=== PATIENT | male | born 1980 | race Caucasian/White ===

== ENCOUNTER → 2019-04-26 15:35 | Outpatient (BNVA) | payer BC, SELFPAY | PROVIDERS: Family Provider Nurse Practitioner; PCP Nurse Practitioner; Visit Provider Nurse Practitioner | DX: K50.90 Crohn's disease, unspecified, without complications (principal) | CPT/HCPCS: 80076; 82150; 85025 ==

== ENCOUNTER → 2019-05-22 16:01 | Outpatient (BNVA) | payer BC, SELFPAY | PROVIDERS: Family Provider Nurse Practitioner; PCP Nurse Practitioner; Visit Provider Nurse Practitioner | DX: K50.90 Crohn's disease, unspecified, without complications (principal) | CPT/HCPCS: 85025 ==

== ENCOUNTER → 2019-05-30 12:07 | Outpatient (BNVA) | payer BC, SELFPAY | PROVIDERS: Family Provider Nurse Practitioner; PCP Nurse Practitioner; Visit Provider Internal Medicine Rheumatology | DX: M45.0 Ankylosing spondylitis of multiple sites in spine (principal); M06.08 Rheumatoid arthritis without rheumatoid factor, vertebrae; K50.90 Crohn's disease, unspecified, without complications; M19.90 Unspecified osteoarthritis, unspecified site; Z79.899 Other long term (current) drug therapy | CPT/HCPCS: 99215; G0463 ==

== ENCOUNTER → 2019-06-14 14:22 | Outpatient (BNVA) | payer BC, SELFPAY | PROVIDERS: Family Provider Nurse Practitioner; PCP Nurse Practitioner; Visit Provider Urology | DX: N52.9 Male erectile dysfunction, unspecified (principal); N52.1 Erectile dysfunction due to diseases classified elsewhere | CPT/HCPCS: 81001 ==

== ENCOUNTER 2019-06-19 11:12 | Outpatient (CLI) | payer BC, SELFPAY ==
--- NOTE | 2019-06-19 11:26 | CT_ITS ---
WS: [id number] CT HEAD TECHNIQUE: Noncontrast CT of the head obtained from the skullbase to the vertex. CLINICAL INFORMATION: HEADACHE, CHRONIC COMPARISON: None. DLP: 992.[address] scans at [facility] use at least one of these dose optimization techniques: automat ed exposure control; mA and/or kV adjustment per patient size (includes targeted exams where dose is matched to clinical indication); or iterative reconstruction. FINDINGS: No evidence of intracranial hemorrhage or mass effect. Ventricular system and basal cisterns are owens nt. Mild small vessel changes with mild parenchymal volume loss. No extra-axial fluid collections. No evidence of mass or mass effect. Normal townsend-white differentiation. Paranasal sinuses and mastoid air cells are well aerated. .Normal visualized soft tissues. CT/CT head wo con* [id number] IMPRESSION: 1. No evidence of intracranial hemorrhage or mass effect. 2. Mild small vessel changes with mild parenchymal volume loss. 3. No acute intracranial findings.
== END 2019-06-19 11:13 | disposition home or self-care (01) ==
LOC: RADWPI 11:19
PROVIDERS: Family Provider Nurse Practitioner; PCP Nurse Practitioner; Visit Provider Nurse Practitioner Family
DX: R51 Headache (principal)
CPT/HCPCS: 70450

== ENCOUNTER → 2019-06-20 10:36 | Outpatient (BNVA) | payer BC, SELFPAY | PROVIDERS: Family Provider Nurse Practitioner; PCP Nurse Practitioner; Visit Provider Nurse Practitioner | DX: F10.20 Alcohol dependence, uncomplicated (principal); F33.1 Major depressive disorder, recurrent, moderate; F17.210 Nicotine dependence, cigarettes, uncomplicated | CPT/HCPCS: 99213 ==

== ENCOUNTER 2019-08-15 09:30 | Outpatient (CLI) | payer MEDICARE, BC, SELFPAY ==
--- NOTE | 2019-08-15 09:53 | US_ITS ---
WS: [id number] RENAL ULTRASOUND REASON FOR EXAM: ELEVATED SERUM CREATININE, BURNING ON URINATION TECHNIQUE: Grayscale and Doppler ultrasound examination of the kidneys. FINDINGS: Right kidney: Right kidney measures 10.7 cm x 5.9 cm x 6.3 cm. Techs measured 1.82 cm. Left kidney: Left kidney measures 11.1 cm x 4.9 cm x 6.0 cm. Cortex measured 1.25 cm The right kidneys shows a deformity along the upper pole extends over the cortex and may represent a junctional defect consideration of follow-up with CT recommended. The remaining right and left kidney s were normal with normal architecture seen. US/US renal BI* [id number] IMPRESSION: A defect is seen along the upper right pole of the kidney a mass to be excluded . Follow-up with CT recommended for consider MRI.
== END 2019-08-15 09:31 | disposition home or self-care (01) ==
LOC: RAD 09:52
PROVIDERS: Family Provider Nurse Practitioner; PCP Nurse Practitioner; Visit Provider Nurse Practitioner Family
DX: R30.9 Painful micturition, unspecified; R74.8 Abnormal levels of other serum enzymes
CPT/HCPCS: 76770

== ENCOUNTER 2019-08-21 09:50 | Outpatient (CLI) | payer MEDICARE, OTHER, SELFPAY ==
--- NOTE | 2019-08-21 09:55 | CT_ITS ---
WS: [id number] CT ABDOMEN PELVIS TECHNIQUE: Noncontrast CT of the abdomen and pelvis with coronal and sagittal reformatted images. CLINICAL INFORMATION: RENAL MASS, ELEVATED SERUM CREATININE COMPARISON: Ultrasound August 15, 2019 DLP: 1008.[address] scans at [facility] use at least one of these dose optimization techniques: automat ed exposure control; mA and/or kV adjustment per patient size (includes targeted exams where dose is matched to clinical indication); or iterative reconstruction. FINDINGS: Noncontrast liver is normal in appearance. Normal GE junction. Normal noncontrast spleen. Adrenal gla nds are normal. Bilateral renal cortical atrophy. No hydronephrosis. Both ureters are decompressed wh ere visualized. No evidence of a right renal mass to correspond to the ultrasound findings. Small cor tical lesions left kidney too small to characterize but likely renal cysts. Lung bases are well aerated. Normal GE junction. Fatty atrophy of the pancreas. Normal caliber abdomi nal aorta. Distal ureters not well evaluated and pelvis not well evaluated due to beam hardening atif fact from bilateral THAs. Ankylosis with anterior bridging syndesmophytes lumbar spine. Ankylosis of the sacroiliac joints bilaterally. Recommend correlation with history of ankylosing spondylitis. CT/CT kidney stone [id number] IMPRESSION: 1. Bilateral renal cortical atrophy. No evidence of right renal mass to corres pond to the ultrasound findings. 2. Tiny cortical lesions left kidney too small to characterize but likely repr esent small renal cysts. 3. Bilateral THAs degrade images in the pelvis. 4. Ankylosis lumbar spine and sacroiliac joints. Recommend correlation with hi story of ankylosing spondylitis. 5. Normal caliber abdominal aorta. 6. No other significant findings.
== END 2019-08-21 09:51 | disposition home or self-care (01) ==
LOC: RADWPI 09:54
PROVIDERS: Family Provider Nurse Practitioner; PCP Nurse Practitioner Family; Visit Provider Nurse Practitioner Family
DX: R74.8 Abnormal levels of other serum enzymes (principal); N28.9 Disorder of kidney and ureter, unspecified; N26.1 Atrophy of kidney (terminal); M43.26 Fusion of spine, lumbar region
CPT/HCPCS: 74176

== ENCOUNTER → 2019-08-23 13:07 | Outpatient (BNVA) | payer MEDICARE, BC, SELFPAY | PROVIDERS: Family Provider Nurse Practitioner; PCP Nurse Practitioner; Referring Provider Nurse Practitioner Family; Visit Provider Specialist | DX: G43.019 Migraine without aura, intractable, without status migrainosus (principal); F32.9 Major depressive disorder, single episode, unspecified | CPT/HCPCS: 99204 ==

== ENCOUNTER 2019-08-29 16:03 | Outpatient (CLI) | payer MEDICARE, BC, SELFPAY ==
--- NOTE | 2019-08-29 16:14 | XR_ITS ---
WS: [id number] ABDOMEN 1 VIEW(S) HISTORY: UNSPECIFIED ABDOMINAL PAIN COMPARISON: None available. Mild constipation. No obstructive pattern is evident on this supine radiograph. No calcifications. No suspicious calcifications or masses. Bamboo-like spine with ankylosis throughout the lumbar spine and SI joints from ankylosing spondyliti s. Bilateral hip replacements. XR/XR KUB [id number] IMPRESSION: 1. Mild constipation. 2. Ankylosing spondylitis.
== END 2019-08-29 16:04 | disposition home or self-care (01) ==
LOC: RADWPI 16:08
PROVIDERS: Family Provider Nurse Practitioner Family; PCP Nurse Practitioner Family; Visit Provider Nurse Practitioner Family
DX: R10.9 Unspecified abdominal pain (principal); K59.00 Constipation, unspecified; M45.9 Ankylosing spondylitis of unspecified sites in spine
CPT/HCPCS: 74018

== ENCOUNTER → 2019-08-30 14:02 | Outpatient (BNVA) | payer MEDICARE, BC, SELFPAY | PROVIDERS: Family Provider Nurse Practitioner Family; PCP Nurse Practitioner Family; Visit Provider Internal Medicine Rheumatology | DX: M45.0 Ankylosing spondylitis of multiple sites in spine (principal); Z79.899 Other long term (current) drug therapy; K50.90 Crohn's disease, unspecified, without complications; M08.90 Juvenile arthritis, unspecified, unspecified site | CPT/HCPCS: G0463 ==

== ENCOUNTER 2019-09-18 13:03 | Outpatient (CLI) | payer MEDICARE, BC, SELFPAY ==
[2019-09-18 13:14] VITALS: BP 140/86; PULSE 76; RESP 6; TEMP 36.8; O2SAT 97
[2019-09-18] MEDS: acetaminophen 325 mg Tablet 975 MG PO (13:39)
[2019-09-18] MEDS: diphenhydrAMINE 50 mg/mL SDV 1mL 25 MG IVP (13:45)
--- NOTE | 2019-09-18 16:25 | PC.NURSE ---
Initial infusion of Remicade. Pt states has had Remicade infusions in 2003. Denies illness. Last dose of Humira over 2 wks ago. Infusion started at 10ml/hr and increased per written orders.
[2019-09-18 16:38] VITALS: BP 114/84; PULSE 82; RESP 16; TEMP 36.7; O2SAT 96
== END 2019-09-18 13:04 | disposition home or self-care (01) ==
LOC: RHEOACUTE 13:04
PROVIDERS: Family Provider Nurse Practitioner Family; PCP Nurse Practitioner Family; Visit Provider Internal Medicine Rheumatology
DX: Z79.899 Other long term (current) drug therapy (principal); M45.9 Ankylosing spondylitis of unspecified sites in spine; K50.019 Crohn's disease of small intestine with unspecified complications
CPT/HCPCS: 36415; 82565; 96365; 96366; 96374; 96375; J1200; J1745; J2930; J7050

== ENCOUNTER → 2019-10-04 11:06 | Outpatient (BNVA) | payer MEDICARE, BC, SELFPAY | PROVIDERS: Family Provider Nurse Practitioner Family; PCP Nurse Practitioner Family; Visit Provider Internal Medicine Rheumatology | DX: Z79.899 Other long term (current) drug therapy (principal); R79.89 Other specified abnormal findings of blood chemistry | CPT/HCPCS: 82565 ==

== ENCOUNTER → 2019-10-16 07:35 | Outpatient (BNVA) | payer MEDICARE, BC, SELFPAY | PROVIDERS: Family Provider Nurse Practitioner Family; PCP Nurse Practitioner Family; Visit Provider Nurse Practitioner | DX: F17.210 Nicotine dependence, cigarettes, uncomplicated (principal) | CPT/HCPCS: 99214 ==

== ENCOUNTER 2019-10-31 13:08 | Outpatient (CLI) | payer MEDICARE, BC, SELFPAY ==
[2019-10-31 13:18] VITALS: BP 117/70; PULSE 88; RESP 16; TEMP 36.9; O2SAT 96
[2019-10-31] MEDS: acetaminophen 325 mg Tablet 975 MG PO (13:35)
[2019-10-31] MEDS: diphenhydrAMINE 50 mg/mL SDV 1mL 25 MG IVP (13:45)
--- NOTE | 2019-10-31 13:52 | PC.NURSE ---
Remicade infusion started at 10ml/hr. Will increase every 15min.
[2019-10-31 16:12] VITALS: BP 130/80; PULSE 77; RESP 16; TEMP 36.7; O2SAT 96
== END 2019-10-31 13:09 | disposition home or self-care (01) ==
LOC: RHEOACUTE 13:11
PROVIDERS: Family Provider Nurse Practitioner Family; PCP Nurse Practitioner Family; Visit Provider Internal Medicine Rheumatology
DX: K50.00 Crohn's disease of small intestine without complications (principal); M45.9 Ankylosing spondylitis of unspecified sites in spine
CPT/HCPCS: 96365; 96366; 96374; 96375; J1200; J1745; J2930; J7050

== ENCOUNTER 2019-11-13 14:42 | Outpatient (CLI) | payer MEDICARE, BC, SELFPAY ==
[2019-11-13 15:17] LABS: Basophils % 0.4 %; Eosinophils # 0.1 10^3/uL (0.0-0.8); Eosinophils % 1.1 %; Hematocrit 39.2 % (42.0-52.0); Hemoglobin 12.6 g/dL (11.7-16.6); Lymphocytes # 2.5 10^3/uL (0.8-4.8); Lymphocytes % 33.7 %; Mean Corpuscular HGB Conc 32.1 g/dL (30.0-36.0); Mean Corpuscular Hemoglobin 29.1 pg (28.0-34.0); Mean Corpuscular Volume 90.5 fL (80-94); Mean Platelet Volume 9.4 fL (7.4-10.4); Monocytes # 0.3 10^3/uL (0.2-0.9); Monocytes % 3.8 %; Neutrophils # 4.46 10^3/uL (1.8-7.7); Neutrophils % 60.6 %; Nucleated Red Blood Cells % 0 %; Platelet Count 242 10^3/cmm (130-400); Red Blood Count 4.33 10^6/uL (4.1-5.3); Red Cell Distribution Width 14.5 % (12.1-15.1); White Blood Count 7.4 10^3/uL (4.0-10.0)
[2019-11-13 15:34] LABS: Alanine Aminotransferase 14 U/L (0-41); Albumin Level 4.6 g/dL (3.5-5.2); Alkaline Phosphatase 106 IU/L (40-130); Anion Gap 13.8 (5-19); Aspartate Amino Transferase 17 U/L (0-40); Blood Urea Nitrogen 30 mg/dL (6-20); Calcium 9.8 mg/dL (8.5-10.5); Carbon Dioxide 26 mmol/L (22-29); Chloride 99 mmol/L (98-107); Globulin 3.2 g/dL (1.3-4.6); Glomerular Filtration Rate 51.6 mL/min (90-130); Glucose 159 mg/dL (65-115); Osmolality Calculated 274 mOsm/kg (285-295); Sodium 132 mmol/L (136-145); Total Bilirubin 0.4 mg/dL (0.15-1.2); Total Protein 7.8 g/dL (6.6-8.7)
[2019-11-13 15:54] LABS: Potassium 6.8 mmol/L (3.5-5.1)
== END 2019-11-13 14:43 | disposition home or self-care (01) ==
PROVIDERS: Family Provider Nurse Practitioner Family; PCP Nurse Practitioner Family; Visit Provider Nurse Practitioner Family
DX: E87.6 Hypokalemia (principal)
CPT/HCPCS: 36415; 80053; 85025

== ENCOUNTER 2019-11-13 17:10 | Emergency (ER) | payer MEDICARE, BC, SELFPAY ==
[2019-11-13 17:18] VITALS: BP 120/65; PULSE 107; RESP 16; TEMP 36.6; O2SAT 95; BMI 45.4
--- NOTE | 2019-11-13 17:29 | ECG_ITS ---
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 Measurements Intervals Rewey Rate: 100 P: 66 [place]: 204 QRS: 22 QRSD: 98 T: 54 QT: 327 QTc: 422 Interpretive Statements SINUS TACHYCARDIA ABNORMAL RHYTHM ECG No previous ECG available for comparison Electronically Signed On 11-13-2019 20:33:35 CDT by Harrison Miller M.D. [id number]
[2019-11-13 18:02] VITALS: PULSE 96
[2019-11-13 18:04] LABS: Anion Gap 16.7 (5-19); Blood Urea Nitrogen 29 mg/dL (6-20); Calcium 9.8 mg/dL (8.5-10.5); Carbon Dioxide 23 mmol/L (22-29); Chloride 99 mmol/L (98-107); Glomerular Filtration Rate 51.6 mL/min (90-130); Glucose 311 mg/dL (65-115); Osmolality Calculated 285 mOsm/kg (285-295); Potassium 5.7 mmol/L (3.5-5.1); Sodium 133 mmol/L (136-145)
--- NOTE | 2019-11-13 19:11 | W.ED.RECABL ---
HPI - Recheck/Abnormal Lab/Rx General: Chief Complaint: Recheck/Abnormal Lab/Rx Stated Complaint: abnormal labs Time Seen by Provider: 11/13/19 17:26 History of Present Illness: HPI narrative: This patient is a 39-year-old male presenting to the emergency department with a reported potassium of 6.9. He said he had labs done today by his doctor and he was called and told to come to the ER. He denies any complaints whatsoever. He is a diabetic, hypertensive, has a history of ankylosing spondylitis. He denies any history of problems with his kidneys. He has never had problems with his potassium. He does not take a potassium supplement. Review of Systems General: Reports: 10 or more systems reviewed and unremarkable except in HPI and below Const: Denies: fever(s), chills, fatigue or malaise Eyes: Denies: change in vision ENMT: Denies: odynophagia Card: Denies: chest pain or swelling of feet/ankles Resp: Denies: dyspnea, productive cough or non-productive cough GI: Denies: abdominal pain, nausea or vomiting : Denies: flank pain Musc: Denies: neck pain or back pain Skin/Breast: Denies: rash Neuro: Denies: headache(s), numbness in extremities or weakness in extremities Yariel/Lymph: Denies: easy bruising or easy bleeding PFSH ED PFSH: Medical History Alcohol dependence, uncomplicated Ankylosing spondylitis Crohn's disease Erectile dysfunction GERD (gastroesophageal reflux disease) High risk medication use Hypertension Hypogonadism Inflammatory arthritis Insomnia Major depressive disorder, recurrent, moderate Nicotine dependence, cigarettes, uncomplicated Rheumatoid arthritis Seronegative 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 Family History Mother Diabetes Father Hypertension Chronic kidney disease (CKD) Other CAD (coronary artery disease) Cancer Hyperlipidemia Stroke Denies family history of Rheumatoid arthritis Clotting disorder Dementia Psychiatric illness Systemic lupus erythematosus (SLE) in adult Suicide Anesthesia complication Bleeding disorder Family history of premature coronary artery disease Lung disease Social History Smoking and tobacco status: never smoked Second hand smoke exposure: No Alcohol intake: current Alcohol intake frequency: holidays/special occasions only Substance/Drug Use: current Substance/Drug use frequency: few times a week Substance/Drug use type: Marijuana Adopted: No Household members: none Marital status: Current occupational status: disabled History of recent travel: No Physical Exam Const: COMMON NORMALS: no acute distress, patient oriented x3, no limitations and alert GENERAL APPEARANCE: cooperative and comfortable HENMT: HEAD & SCALP: normal to inspection FACE & SINUS: normal facial exam Eye: GENERAL EYE: appearance normal, both eyes and all related structures Neck/C-Spine: COMMON NORMALS: supple, no meningeal signs and no JVD Chest: COMMONS NORMALS: normal inspection of the chest Resp: COMMON NORMALS: normal respiratory effort, No use of accessory muscles and clear to auscultation bilaterally AUSCULTATION: clear to auscultation bilaterally Cardio: COMMON NORMALS: no JVD, regular rate, regular rhythm and No murmurs present (Cardio) RATE: regular rate RHYTHM: regular rhythm GI: COMMON NORMALS: Normal to inspection, nondistended, normoactive bowel sounds present, Soft to palpation and non-tender INSPECTION: Yes normal to inspection AUSCULTATION: Yes normoactive bowel sounds PALPATION: Yes Soft to palpation Back/Pelvis: COMMON NORMALS: thoracic and lumbar spine normal to inspection Extremity: COMMON NORMALS: normal to inspection Neuro: COMMON NORMALS: patient oriented x3, moves all extremities, no focal motor deficits and no sensory deficits noted SENSORIUM/ORIENTATION: Yes alert MENINGEAL SIGNS: Yes no meningeal signs Psych: COMMON NORMALS: mental status grossly normal, cooperative and normal affect Skin: COMMON NORMALS: no rashes or lesions noted and turgor normal GENERAL SKIN EXAM: no rashes or lesions noted and turgor normal Course ED course: Potassium here was 5.7. I spoke with Dr. Morejon who is a river crossing supervisor for his primary care providing nurse practitioner. She agreed that with no EKG changes and an improved potassium he can probably go home for outpatient work-up. His renal function a year ago was a creatinine of 0.8 and is now 1.5. This may be part of the cause for his elevated potassium. He is also on lisinopril and meloxicam both of which can be an issue with this. He is also on a number of other medications for his ankylosing spondylitis. His blood pressure here is 1 10-1 20 systolic and I think he can tolerate going without his lisinopril for now. Dr. Morejon agreed. They will follow-up with him for repeat testing in a few days. I explained this to the patient and he understands that he needs to avoid high potassium foods in his diet and to return to the ED if he does start feeling poorly in any way. Vital Signs: Vital signs: Vital Signs Temperature 97.8 F 11/13/19 17:18 Pulse Rate 96 11/13/19 18:02 Respiratory Rate 16 11/13/19 17:18 Blood Pressure 120/65 11/13/19 17:18 Pulse Oximetry 95 11/13/19 17:18 MDM - Recheck/Abnormal Lab/Rx Lab Data: Labs: Lab Results 11/13/19 Range/Units 17:44 Sodium 133 L (136-145) mmol/L Potassium 5.7 H (3.5-5.1) mmol/L Chloride 99 (98-107) mmol/L Carbon Dioxide 23 (22-29) mmol/L Anion Gap 16.7 (5-19) BUN 29 H (6-20) mg/dL Creatinine 1.5 H (0.7-1.2) mg/dL GFR Calculation 51.6 L (90-130) mL/min Glucose 311 H (65-115) mg/dL Calculated Osmolal ity 285 (285-295) mOsm/k g Calcium 9.8 (8.5-10.5) mg/dL Discharge Plan Discharge Patient Disposition: Home Clinical Impression: Acute hyperkalemia Chronic renal insufficiency Qualifiers: Chronic kidney disease stage: unspecified stage Qualified Code(s): N18.9 - Chronic kidney disease, unspecified Condition: Stable Prescriptions: Held lisinopril 40 mg tablet 40 mg PO DAILY RF: 0 Hold Instructions: Resume on 12/12/19. Do not restart this medicine until told to do so by your primary care provider No Action Remicade 100 mg recon soln See Rx Instructions .ROUTE .COMPLEX RF: 0 citalopram [Celexa] 40 mg tablet 40 mg PO DAILY Qty: 30 RF: 1 citalopram [Celexa] 20 mg tablet 20 mg PO DAILY Qty: 30 RF: 0 sumatriptan succinate [Imitrex] 100 mg tablet 100 mg PO Q2H PRN (Reason: migraine headache) Qty: 9 RF: 3 omeprazole 20 mg capsule,delayed release(DR/EC) 20 mg PO DAILY RF: 0 atorvastatin [Lipitor] 10 mg tablet 10 mg PO DAILY RF: 0 Victoza 2-Julio 0.6 mg/0.1 mL (18 mg/3 mL) pen injector 1.8 mg SUBCUT DAILY RF: 0 amlodipine 2.5 mg tablet 2.5 mg PO DAILY RF: 0 bupropion HCl [Wellbutrin SR] 200 mg tablet sustained-release 12 hr 200 mg PO Q12H RF: 0 Levemir U-100 Insulin 100 unit/mL solution 10 unit SUBCUT DAILY RF: 0 furosemide [Lasix] 20 mg tablet 20 mg PO EVERY OTHER DAY RF: 0 azathioprine [Imuran] 50 mg tablet 125 mg PO DAILY RF: 0 metoclopramide HCl 10 mg tablet 10 mg PO Q6H PRN (Reason: nausea and vomiting) RF: 0 Miralax 17 gram Powder In Packet 17 g PO BEDTIME PRN (Reason: Constipation) RF: 0 meloxicam 7.5 mg tablet 7.5 mg PO DAILY RF: 0 mupirocin 2 % ointment See Rx Instructions .ROUTE .COMPLEX RF: 0 clonidine HCl 0.1 mg tablet 0.1 mg PO DAILY RF: 0 trazodone 100 mg tablet 100 mg PO BEDTIME RF: 0 Discharge Orders: Discharge Order (Routine); Ordered 11/13/19 Ordered By: Nhung Langford Referrals: Clau Baird FNP [Primary Care Provider] - Discharge Diet: Diabetic Discharge Activity: Resume usual activity Patient Instructions: Hyperkalemia (ED) Activity Restrictions/Additional Instructions: Take all your regular medications except for your lisinopril. Expect to be contacted by your primary care provider for some repeat labs in the next few days. Return to the emergency department if any new or worse symptoms. Coding Level of Care Code ED Upholstery Cutter for Ernestina Buitrago
--- NOTE | 2019-11-13 19:18 | PC.NURSE ---
ASSUMED CARE OF PT FROM JACKSON HERNANDEZ RN AT THIS TIME.
[2019-11-13 19:33] VITALS: BP 126/83; PULSE 96; RESP 16; O2SAT 96
== END 2019-11-13 19:34 | disposition home or self-care (01) ==
PROVIDERS: Emergency Provider Emergency Medicine; PCP Nurse Practitioner Family
DX: I12.9 Hypertensive chronic kidney disease with stage 1 through stage 4 chronic kidney disease, or unspecified chronic kidney disease (principal); E11.22 Type 2 diabetes mellitus with diabetic chronic kidney disease; N18.9 Chronic kidney disease, unspecified; E87.5 Hyperkalemia; Z79.4 Long term (current) use of insulin; E87.6 Hypokalemia
CPT/HCPCS: 12345; 36415; 80048; 80053; 85025; 93005; 99282; 99283

== ENCOUNTER 2019-12-13 13:02 | Outpatient (CLI) | payer MEDICARE, BC, SELFPAY ==
[2019-12-13 13:10] VITALS: BP 150/68; PULSE 86; RESP 16; TEMP 36.8; O2SAT 96
[2019-12-13 13:25] VITALS: BMI 45.6
[2019-12-13] MEDS: acetaminophen 325 mg Tablet 975 MG PO (13:29)
[2019-12-13] MEDS: diphenhydrAMINE 50 mg/mL SDV 1mL 25 MG IVP (13:35)
--- NOTE | 2019-12-13 14:25 | PC.NURSE ---
1353 Remicade infusion initiated per orders at 10ml/hr. Increasing per orders at set times.
--- NOTE | 2019-12-13 14:27 | PC.NURSE ---
Reviewed home meds. Lisinopril and Meloxicam stopped per PCP.
[2019-12-13 16:24] VITALS: BP 140/87; PULSE 78
== END 2019-12-13 13:03 | disposition home or self-care (01) ==
LOC: RHEOACUTE 13:03
PROVIDERS: PCP Nurse Practitioner Family; Visit Provider Internal Medicine Rheumatology
DX: K50.00 Crohn's disease of small intestine without complications (principal); M45.9 Ankylosing spondylitis of unspecified sites in spine
CPT/HCPCS: 96365; 96366; 96375; J1200; J1745; J2930; J7050

== ENCOUNTER → 2019-12-19 11:01 | Outpatient (BNVA) | payer MEDICARE, BC, SELFPAY | PROVIDERS: PCP Nurse Practitioner Family; Visit Provider Internal Medicine Rheumatology | DX: M06.08 Rheumatoid arthritis without rheumatoid factor, vertebrae (principal); Z79.899 Other long term (current) drug therapy; R79.89 Other specified abnormal findings of blood chemistry; E87.5 Hyperkalemia | CPT/HCPCS: 36415; 80076; 82565; 85025; 85651; 86140; 86812 ==

== ENCOUNTER → 2019-12-20 13:51 | Outpatient (BNVA) | payer MEDICARE, BC, SELFPAY | PROVIDERS: PCP Internal Medicine; Visit Provider Urology | DX: N52.1 Erectile dysfunction due to diseases classified elsewhere (principal); R79.89 Other specified abnormal findings of blood chemistry | CPT/HCPCS: 81001 ==

== ENCOUNTER → 2020-01-01 10:50 | Outpatient (BNVA) | payer MEDICARE, BC, SELFPAY | PROVIDERS: PCP Internal Medicine; Visit Provider Internal Medicine Rheumatology | DX: M45.0 Ankylosing spondylitis of multiple sites in spine (principal); K50.90 Crohn's disease, unspecified, without complications; M06.08 Rheumatoid arthritis without rheumatoid factor, vertebrae; M19.90 Unspecified osteoarthritis, unspecified site; Z79.899 Other long term (current) drug therapy | CPT/HCPCS: 99214 ==

== ENCOUNTER → 2020-01-04 14:09 | Outpatient (BNVA) | payer MEDICARE, BC, SELFPAY | PROVIDERS: PCP Internal Medicine; Visit Provider Specialist | DX: G43.019 Migraine without aura, intractable, without status migrainosus (principal) | CPT/HCPCS: 99213 ==

== ENCOUNTER → 2020-01-18 08:31 | Outpatient (BNVA) | payer MEDICARE, BC, SELFPAY | PROVIDERS: PCP Internal Medicine; Visit Provider Nurse Practitioner | DX: F33.1 Major depressive disorder, recurrent, moderate (principal); F17.210 Nicotine dependence, cigarettes, uncomplicated | CPT/HCPCS: 99214 ==

== ENCOUNTER 2020-01-24 13:13 | Outpatient (CLI) | payer MEDICARE, BC, SELFPAY ==
[2020-01-24 13:20] VITALS: BP 125/82; PULSE 95; RESP 16; TEMP 36.6; O2SAT 97
[2020-01-24] MEDS: acetaminophen 325 mg Tablet 975 MG PO (13:35)
[2020-01-24 13:37] VITALS: BMI 45.4
[2020-01-24] MEDS: diphenhydrAMINE 50 mg/mL SDV 1mL 25 MG IVP (13:40)
--- NOTE | 2020-01-24 14:32 | PC.NURSE ---
1330 Pt seems drowsy. Denies any medication today.
--- NOTE | 2020-01-24 16:24 | PC.NURSE ---
Post infusion BP elevated. Pt states he hasn't taken BP medications yet and they were due earlier today. States he will take when he gets home.
[2020-01-24 16:25] VITALS: BP 150/98; PULSE 70; RESP 16; O2SAT 98
== END 2020-01-24 13:14 | disposition home or self-care (01) ==
LOC: RHEOACUTE 13:14
PROVIDERS: PCP Internal Medicine; Visit Provider Internal Medicine Rheumatology
DX: K50.00 Crohn's disease of small intestine without complications (principal); M45.9 Ankylosing spondylitis of unspecified sites in spine
CPT/HCPCS: 96365; 96366; 96375; J1200; J1745; J2930; J7050

== ENCOUNTER 2020-03-05 12:57 | Outpatient (CLI) | payer MEDICARE, BC, SELFPAY ==
[2020-03-05 13:07] VITALS: BP 149/95; PULSE 85; RESP 16; TEMP 36.3; O2SAT 97
[2020-03-05] MEDS: acetaminophen 325 mg Tablet 975 MG PO (13:14)
[2020-03-05] MEDS: diphenhydrAMINE 50 mg/mL SDV 1mL 25 MG IVP (13:35)
[2020-03-05 16:00] VITALS: BP 151/101; PULSE 77; RESP 16; O2SAT 97
[2020-03-05 16:40] VITALS: BP 176/105; PULSE 77; RESP 16; O2SAT 97
--- NOTE | 2020-03-05 17:00 | PC.NURSE ---
Pt states he hasn't taken his bp meds yet today. Denies [place], and headache.
--- NOTE | 2020-03-05 17:02 | PC.NURSE ---
1630 176/[address] HR [address] Gallagher notified.
--- NOTE | 2020-03-05 17:06 | PC.NURSE ---
On DC pt states he will go straight home to take his BP meds.
== END 2020-03-05 12:58 | disposition home or self-care (01) ==
LOC: RHEOACUTE 12:58
PROVIDERS: PCP Internal Medicine; Visit Provider Internal Medicine Rheumatology
DX: Z79.899 Other long term (current) drug therapy (principal); K50.00 Crohn's disease of small intestine without complications; M45.9 Ankylosing spondylitis of unspecified sites in spine
CPT/HCPCS: 80076; 82565; 85007; 85027; 85651; 86140; 96365; 96366; 96375; J1200; J1745; J2930; J7050

== ENCOUNTER 2020-04-17 13:26 | Outpatient (CLI) | payer MEDICARE, BC, SELFPAY ==
[2020-04-17 13:36] VITALS: BP 155/88; PULSE 101; RESP 16; TEMP 36.1; O2SAT 97
[2020-04-17] MEDS: diphenhydrAMINE 50 mg/mL SDV 1mL 25 MG IVP (13:45)
[2020-04-17] MEDS: acetaminophen 325 mg Tablet 975 MG PO (13:50)
[2020-04-17 14:23] VITALS: BMI 44.9
[2020-04-17 16:00] VITALS: BP 158/99; PULSE 72; RESP 16; O2SAT 97
== END 2020-04-17 13:27 | disposition home or self-care (01) ==
LOC: RHEOACUTE 13:27
PROVIDERS: PCP Internal Medicine; Visit Provider Internal Medicine Rheumatology
DX: K50.00 Crohn's disease of small intestine without complications (principal); M45.9 Ankylosing spondylitis of unspecified sites in spine
CPT/HCPCS: 96365; 96366; 96375; J1200; J1745; J2930; J7050

== ENCOUNTER → 2020-04-22 08:08 | Outpatient (BNVA) | payer MEDICARE, BC, SELFPAY | PROVIDERS: PCP Internal Medicine; Visit Provider Nurse Practitioner | DX: F33.1 Major depressive disorder, recurrent, moderate (principal); F10.20 Alcohol dependence, uncomplicated | CPT/HCPCS: 99213 ==

== ENCOUNTER 2020-04-29 15:54 | Outpatient (CLI) | payer MEDICARE, BC, SELFPAY ==
--- NOTE | 2020-04-29 16:10 | XRR_ITS ---
PROCEDURE INFORMATION: Exam: XR Chest, 2 Views Exam date and time: 04/29/2020 4:10 PM Age: 39 years old Clinical indication: Cough TECHNIQUE: Imaging protocol: XR of the chest Views: 2 views. Total images: 2 COMPARISON: CR Chest 2 views* [id number] 04/18/2018 1:28 PM FINDINGS: Lungs: Unremarkable. No consolidation. Pleural space: Unremarkable. No pleural effusion. No pneumothorax. Heart/Mediastinum: Unremarkable. No cardiomegaly. Bones/joints: Diffuse idiopathic skeletal hyperostosis. Other findings: Heavy body habitus. XR/XR chest 2V* [id number] IMPRESSION: Nonacute.
== END 2020-04-29 15:55 | disposition home or self-care (01) ==
PROVIDERS: PCP Internal Medicine; Visit Provider Nurse Practitioner Family
DX: R05 Cough (principal)
CPT/HCPCS: 71046

== ENCOUNTER 2020-05-02 12:03 | Outpatient (RCR) | payer MEDICARE, BC, SELFPAY | END 2020-05-12 23:59 | disposition home or self-care (01) | LOC: SPT 12:03 | PROVIDERS: PCP Internal Medicine; Referring Provider Nurse Practitioner Family; Visit Provider Nurse Practitioner Family | DX: M47.812 Spondylosis without myelopathy or radiculopathy, cervical region (principal); M79.18 Myalgia, other site | CPT/HCPCS: 97110; 97162; G0283 ==

== ENCOUNTER → 2020-05-08 14:46 | Outpatient (BNVA) | payer MEDICARE, BC, SELFPAY | PROVIDERS: PCP Internal Medicine; Visit Provider Specialist | DX: G43.711 Chronic migraine without aura, intractable, with status migrainosus (principal) | CPT/HCPCS: 99213 ==

== ENCOUNTER 2020-05-13 06:00 | Outpatient (RCR) | payer MEDICARE, BC, SELFPAY | END 2020-06-09 23:59 | disposition home or self-care (01) | LOC: SPT 06:00 | PROVIDERS: PCP Internal Medicine; Referring Provider Nurse Practitioner Family; Visit Provider Nurse Practitioner Family | DX: M50.10 Cervical disc disorder with radiculopathy, unspecified cervical region (principal) | CPT/HCPCS: 97110; G0283 ==

== ENCOUNTER → 2020-05-14 14:36 | Outpatient (BNVA) | payer MEDICARE, BC, SELFPAY | PROVIDERS: PCP Internal Medicine; Visit Provider Internal Medicine Rheumatology | DX: M45.0 Ankylosing spondylitis of multiple sites in spine (principal); M46.1 Sacroiliitis, not elsewhere classified; K50.90 Crohn's disease, unspecified, without complications | CPT/HCPCS: 99214 ==

== ENCOUNTER 2020-06-04 14:23 | Outpatient (CLI) | payer MEDICARE, BC, SELFPAY ==
[2020-06-04] MEDS: acetaminophen 325 mg Tablet 975 MG PO (15:30)
[2020-06-04 15:39] LABS: Basophils % 0.5 %; Eosinophils # 0.1 10^3/uL (0.0-0.8); Eosinophils % 1.1 %; Hemoglobin 13.9 g/dL (11.7-16.6); Lymphocytes # 2.1 10^3/uL (0.8-4.8); Lymphocytes % 31.4 %; Mean Corpuscular HGB Conc 32.3 g/dL (30.0-36.0); Mean Corpuscular Hemoglobin 26.8 pg (28.0-34.0); Mean Platelet Volume 10.3 fL (7.4-10.4); Monocytes # 0.4 10^3/uL (0.2-0.9); Neutrophils # 4.03 10^3/uL (1.8-7.7); Neutrophils % 60.5 %; Nucleated Red Blood Cells % 0 %; Platelet Count 248 10^3/cmm (130-400); Red Blood Count 5.18 10^6/uL (4.1-5.3); Red Cell Distribution Width 14.6 % (12.1-15.1); White Blood Count 6.7 10^3/uL (4.0-10.0)
[2020-06-04] MEDS: diphenhydrAMINE 50 mg/mL SDV 1mL 25 MG IVP (15:40)
[2020-06-04 15:51] LABS: Alanine Aminotransferase 15 U/L (0-41); Albumin Level 4.1 g/dL (3.5-5.2); Alkaline Phosphatase 118 IU/L (40-130); Aspartate Amino Transferase 19 U/L (0-40); C Reactive Protein 8.9 mg/L (0.0-4.9); Globulin 3.5 g/dL (1.3-4.6); Glomerular Filtration Rate 82.3 mL/min (90-130); Total Bilirubin 0.5 mg/dL (0.15-1.2); Total Protein 7.6 g/dL (6.6-8.7)
[2020-06-04] MEDS: sodium chloride 0.9% 250 ML 75 ML IV (15:55)
[2020-06-04 16:20] VITALS: BP 118/77; PULSE 84; RESP 18; TEMP 36.6; O2SAT 97
[2020-06-04 16:58] LABS: Erythrocyte Sedimentation Rate 32 mm/hr (0-10)
== END 2020-06-04 14:24 | disposition home or self-care (01) ==
LOC: ONCMED 14:29
PROVIDERS: PCP Internal Medicine; Visit Provider Internal Medicine Rheumatology
DX: M45.9 Ankylosing spondylitis of unspecified sites in spine (principal); K50.00 Crohn's disease of small intestine without complications
CPT/HCPCS: 80076; 82565; 85025; 85651; 86140; 96365; 96375; J1200; J1745; J2930; J7050

== ENCOUNTER → 2020-07-16 08:32 | Outpatient (BNVA) | payer MEDICARE, BC, SELFPAY | PROVIDERS: PCP Internal Medicine; Visit Provider Nurse Practitioner | DX: F33.1 Major depressive disorder, recurrent, moderate (principal); F10.20 Alcohol dependence, uncomplicated | CPT/HCPCS: 99214 ==

== ENCOUNTER 2020-07-23 13:56 | Outpatient (CLI) | payer MEDICARE, BC, SELFPAY ==
[2020-07-23 14:25] VITALS: BP 133/79; PULSE 89; RESP 18; TEMP 36.4; O2SAT 97
[2020-07-23] MEDS: sodium chloride 0.9% 250 ML 75 ML IV (14:30)
[2020-07-23] MEDS: acetaminophen 325 mg Tablet 975 MG PO (14:33)
[2020-07-23] MEDS: diphenhydrAMINE 50 mg/mL SDV 1mL 25 MG IV (14:34)
[2020-07-23 16:24] VITALS: BP 146/92; PULSE 80; RESP 18; TEMP 36.8; O2SAT 97
--- NOTE | 2020-08-06 10:28 | PC.NURSE ---
Due to an administrative issue I am doing a late entry for treatment date on 07/23/2020, for clarity of the medical record.? The infusion case was routine and the approximate stop time was at 1629 on 07/23/2020 based upon the start time of 1430. INFLIXIMAB 600mg infused completely without complications. -Anna Domingo
== END 2020-07-23 13:57 | disposition home or self-care (01) ==
PROVIDERS: PCP Internal Medicine; Visit Provider Internal Medicine Rheumatology
DX: M45.0 Ankylosing spondylitis of multiple sites in spine (principal); K50.90 Crohn's disease, unspecified, without complications
CPT/HCPCS: 96365; 96366; 96375; J1200; J1745; J2930; J7050

== ENCOUNTER 2020-08-07 20:00 | Outpatient (CLI) | payer MEDICARE, BC, SELFPAY | END 2020-08-07 20:01 | disposition home or self-care (01) | LOC: SLEEP 08-08 08:49 | PROVIDERS: PCP Internal Medicine; Visit Provider Internal Medicine | DX: G47.33 Obstructive sleep apnea (adult) (pediatric) (principal) | CPT/HCPCS: 95811 ==

== ENCOUNTER 2020-09-03 12:17 | Outpatient (CLI) | payer MEDICARE, BC, SELFPAY ==
[2020-09-03 12:42] VITALS: BP 129/87; PULSE 86; RESP 18; TEMP 36.3; O2SAT 95
[2020-09-03] MEDS: acetaminophen 325 mg Tablet 975 MG PO (12:57)
[2020-09-03] MEDS: sodium chloride 0.9% 250 ML 75 ML IV (13:00)
[2020-09-03 13:35] LABS: Basophils % 0.5 %; Eosinophils # 0.1 10^3/uL (0.0-0.8); Eosinophils % 1.4 %; Hematocrit 42.9 % (42.0-52.0); Hemoglobin 14.1 g/dL (11.7-16.6); Lymphocytes # 1.3 10^3/uL (0.8-4.8); Lymphocytes % 23.4 %; Mean Corpuscular HGB Conc 32.9 g/dL (30.0-36.0); Mean Corpuscular Hemoglobin 27.8 pg (28.0-34.0); Mean Corpuscular Volume 84.4 fL (80-94); Mean Platelet Volume 10.6 fL (7.4-10.4); Monocytes # 0.4 10^3/uL (0.2-0.9); Monocytes % 7.5 %; Neutrophils # 3.82 10^3/uL (1.8-7.7); Neutrophils % 66.7 %; Nucleated Red Blood Cells % 0 %; Platelet Count 217 10^3/cmm (130-400); Red Blood Count 5.08 10^6/uL (4.1-5.3); Red Cell Distribution Width 15.6 % (12.1-15.1); White Blood Count 5.7 10^3/uL (4.0-10.0)
[2020-09-03 14:01] LABS: Alanine Aminotransferase 17 U/L (0-41); Albumin Level 4.3 g/dL (3.5-5.2); Alkaline Phosphatase 115 IU/L (40-130); Aspartate Amino Transferase 17 U/L (0-40); C Reactive Protein 11.5 mg/L (0.0-4.9); Globulin 2.7 g/dL (1.3-4.6); Total Bilirubin 0.4 mg/dL (0.15-1.2)
[2020-09-03 14:38] LABS: Erythrocyte Sedimentation Rate 26 mm/hr (0-10)
[2020-09-03 15:49] VITALS: BP 152/88; PULSE 79; RESP 18; TEMP 36.3; O2SAT 96
[2020-09-03] MEDS: diphenhydrAMINE 50 mg/mL SDV 1mL 25 MG IVP (16:03)
== END 2020-09-03 12:18 | disposition home or self-care (01) ==
PROVIDERS: PCP Internal Medicine; Visit Provider Internal Medicine Rheumatology
DX: M45.0 Ankylosing spondylitis of multiple sites in spine (principal); K50.90 Crohn's disease, unspecified, without complications
CPT/HCPCS: 80076; 82565; 85025; 85651; 86140; 96365; 96366; 96375; J1200; J1745; J2930; J7050

== ENCOUNTER → 2020-09-17 13:50 | Outpatient (BNVA) | payer MEDICARE, BC, SELFPAY | PROVIDERS: PCP Internal Medicine; Visit Provider Internal Medicine Rheumatology | DX: M45.0 Ankylosing spondylitis of multiple sites in spine (principal); K50.90 Crohn's disease, unspecified, without complications; M19.90 Unspecified osteoarthritis, unspecified site; Z79.899 Other long term (current) drug therapy | CPT/HCPCS: 99214 ==

== ENCOUNTER → 2020-09-18 13:39 | Outpatient (BNVA) | payer MEDICARE, BC, SELFPAY | PROVIDERS: PCP Internal Medicine; Visit Provider Specialist | DX: G43.711 Chronic migraine without aura, intractable, with status migrainosus (principal); M19.90 Unspecified osteoarthritis, unspecified site; M45.9 Ankylosing spondylitis of unspecified sites in spine | CPT/HCPCS: 99214 ==

== ENCOUNTER → 2020-10-08 13:18 | Outpatient (BNVA) | payer MEDICARE, BC, SELFPAY | PROVIDERS: PCP Internal Medicine; Visit Provider Nurse Practitioner | DX: F33.1 Major depressive disorder, recurrent, moderate (principal); F10.21 Alcohol dependence, in remission | CPT/HCPCS: 99214 ==

== ENCOUNTER 2020-10-17 14:53 | Outpatient (CLI) | payer MEDICARE, BC, SELFPAY ==
[2020-10-17 15:02] VITALS: BP 149/93; PULSE 83; RESP 20; TEMP 36.2; O2SAT 96
[2020-10-17] MEDS: sodium chloride 0.9% 250 ML 75 ML IV (15:23)
[2020-10-17] MEDS: diphenhydrAMINE 50 mg/mL SDV 1mL 25 MG IVP (15:25)
[2020-10-17] MEDS: acetaminophen 325 mg Tablet 975 MG PO (15:25)
[2020-10-17 16:51] VITALS: BP 136/83; PULSE 73; RESP 20; TEMP 36.1; O2SAT 90
== END 2020-10-17 14:54 | disposition home or self-care (01) ==
PROVIDERS: PCP Internal Medicine; Referring Provider Internal Medicine Rheumatology; Visit Provider Internal Medicine Rheumatology
DX: M45.0 Ankylosing spondylitis of multiple sites in spine (principal); K50.90 Crohn's disease, unspecified, without complications
CPT/HCPCS: 96365; 96375; J1200; J1745; J2930; J7050

== ENCOUNTER → 2020-11-21 14:46 | Outpatient (BNVA) | payer MEDICARE, BC, SELFPAY | PROVIDERS: PCP Internal Medicine; Visit Provider Specialist | DX: G24.3 Spasmodic torticollis (principal); G43.019 Migraine without aura, intractable, without status migrainosus | CPT/HCPCS: 64616; J0585 ==

== ENCOUNTER 2020-11-28 13:03 | Outpatient (CLI) | payer MEDICARE, BC, SELFPAY ==
[2020-11-28 13:20] VITALS: BP 124/78; PULSE 74; RESP 18; TEMP 36.1; O2SAT 95
[2020-11-28] MEDS: acetaminophen 325 mg Tablet 650 MG PO (13:50)
[2020-11-28] MEDS: sodium chloride 0.9% 250 ML 75 ML IV (13:54)
[2020-11-28] MEDS: diphenhydrAMINE 50 mg/mL SDV 1mL 25 MG IVP (13:55)
[2020-11-28 14:04] LABS: Basophils % 0.3 %; Eosinophils # 0.1 10^3/uL (0.0-0.8); Eosinophils % 1.3 %; Hematocrit 41.5 % (42.0-52.0); Hemoglobin 14.1 g/dL (11.7-16.6); Lymphocytes # 1.8 10^3/uL (0.8-4.8); Lymphocytes % 27.5 %; Mean Corpuscular Hemoglobin 29.7 pg (28.0-34.0); Mean Corpuscular Volume 87.4 fl (80-94); Mean Platelet Volume 10.3 fL (7.4-10.4); Monocytes # 0.4 10^3/uL (0.2-0.9); Monocytes % 6.4 %; Neutrophils # 4.11 10^3/uL (1.8-7.7); Neutrophils % 64.2 %; Nucleated Red Blood Cells % 0 %; Platelet Count 179 10^3/cmm (130-400); Red Blood Count 4.75 10^6/uL (4.1-5.3); Red Cell Distribution Width 14.6 % (12.1-15.1); White Blood Count 6.4 10^3/uL (4.0-10.0)
[2020-11-28 14:32] LABS: Alanine Aminotransferase 14 U/L (0-41); Albumin Level 3.7 g/dL (3.5-5.2); Alkaline Phosphatase 97 IU/L (40-130); Aspartate Amino Transferase 14 U/L (0-40); Globulin 2.7 g/dL (1.3-4.6); Glomerular Filtration Rate 81.9 mL/min (90-130); Total Bilirubin 0.4 mg/dL (0.15-1.2); Total Protein 6.4 g/dL (6.6-8.7)
[2020-11-28 15:23] VITALS: BP 131/80; PULSE 69; RESP 18; TEMP 36.1; O2SAT 94
[2020-11-28 15:38] LABS: Erythrocyte Sedimentation Rate 20 mm/hr (0-10)
== END 2020-11-28 13:04 | disposition home or self-care (01) ==
LOC: ONCMED 13:08
PROVIDERS: PCP Internal Medicine; Visit Provider Internal Medicine Rheumatology
DX: M45.0 Ankylosing spondylitis of multiple sites in spine (principal); K50.90 Crohn's disease, unspecified, without complications
CPT/HCPCS: 80076; 82565; 85025; 85651; 96365; 96375; J1200; J1745; J2920; J7050

== ENCOUNTER → 2021-01-02 13:14 | Outpatient (BNVA) | payer MEDICARE, BC, SELFPAY | PROVIDERS: PCP Internal Medicine; Visit Provider Nurse Practitioner | DX: F33.1 Major depressive disorder, recurrent, moderate (principal); F10.21 Alcohol dependence, in remission | CPT/HCPCS: 99214 ==

== ENCOUNTER 2021-01-13 13:06 | Outpatient (CLI) | payer MEDICARE, BC, SELFPAY ==
[2021-01-13 13:18] VITALS: BP 141/85; PULSE 79; RESP 18; TEMP 36.9; O2SAT 97
[2021-01-13] MEDS: acetaminophen 325 mg Tablet 650 MG PO (13:45)
[2021-01-13] MEDS: diphenhydrAMINE 50 mg/mL SDV 1mL 25 MG IV (13:48)
[2021-01-13] MEDS: sodium chloride 0.9% 250 ML 75 ML IV (13:48)
[2021-01-13 15:11] VITALS: BP 154/101; PULSE 68; RESP 18; TEMP 36.3; O2SAT 97
--- NOTE | 2021-01-13 15:45 | PC.NURSE ---
Pt's blood pressure was elevated at 154/101 on his post infusion vital signs. I spoke with his PCP's nurse, Moriah Jefferson RN. She states that he takes Amlodipine for blood pressure, and to be sure he has taken it today. She states that if he has taken his daily dose, and is this elevated, then he should stop by [facility] walk-in clinic to be further evaluated. The patient then states to me that he has not taken his medication today, and becomes very agitated. I instructed him to take his medication this evening, and he begins using profanity and slamming doors upon his exit demanding to be discharged without any further intervention.
== END 2021-01-13 13:07 | disposition home or self-care (01) ==
PROVIDERS: PCP Internal Medicine; Visit Provider Internal Medicine Rheumatology
DX: M45.0 Ankylosing spondylitis of multiple sites in spine (principal); K50.90 Crohn's disease, unspecified, without complications
CPT/HCPCS: 96365; 96375; J1200; J1745; J2920; J7050

== ENCOUNTER → 2021-02-27 11:04 | Outpatient (BNVA) | payer MEDICARE, BC, SELFPAY | PROVIDERS: PCP Internal Medicine; Visit Provider Specialist | DX: G24.3 Spasmodic torticollis (principal); G43.019 Migraine without aura, intractable, without status migrainosus | CPT/HCPCS: 64616; J0585 ==

== ENCOUNTER 2021-03-03 13:13 | Outpatient (CLI) | payer MEDICARE, BC, SELFPAY ==
[2021-03-03 13:23] VITALS: BP 142/82; PULSE 80; RESP 18; TEMP 36.2; O2SAT 94
[2021-03-03] MEDS: acetaminophen 325 mg Tablet 650 MG PO (14:02)
[2021-03-03] MEDS: predniSONE 20 mg Tablet PO (14:02)
[2021-03-03] MEDS: diphenhydrAMINE 50 mg/mL SDV 1mL 25 MG IV (14:02)
[2021-03-03] MEDS: sodium chloride 0.9% 250 ML 50 ML IV (14:08)
[2021-03-03 14:16] LABS: Basophils % 0.3 %; Eosinophils # 0.1 10^3/uL (0.0-0.8); Eosinophils % 1.4 %; Hematocrit 46.8 % (42.0-52.0); Hemoglobin 16.1 g/dL (11.7-16.6); Lymphocytes % 29.3 %; Mean Corpuscular HGB Conc 34.4 g/dL (30.0-36.0); Mean Corpuscular Hemoglobin 30.8 pg (28.0-34.0); Mean Corpuscular Volume 89.7 fl (80-94); Mean Platelet Volume 10.1 fL (7.4-10.4); Monocytes # 0.4 10^3/uL (0.2-0.9); Monocytes % 6.2 %; Neutrophils # 4.17 10^3/uL (1.8-7.7); Neutrophils % 62.5 %; Nucleated Red Blood Cells % 0 %; Platelet Count 218 10^3/cmm (130-400); Red Blood Count 5.22 10^6/uL (4.1-5.3); Red Cell Distribution Width 14.5 % (12.1-15.1); White Blood Count 6.7 10^3/uL (4.0-10.0)
[2021-03-03 15:26] VITALS: BP 122/82; PULSE 65; RESP 18; TEMP 36.2; O2SAT 95
[2021-03-03 16:20] LABS: Alanine Aminotransferase 18 U/L (0-41); Albumin Level 3.9 g/dL (3.5-5.2); Alkaline Phosphatase 89 IU/L (40-130); Aspartate Amino Transferase 16 U/L (0-40); Globulin 2.8 g/dL (1.3-4.6); Glomerular Filtration Rate 73.4 mL/min (90-130); Total Bilirubin 0.5 mg/dL (0.15-1.2); Total Protein 6.7 g/dL (6.6-8.7)
[2021-03-10 12:18] LABS: Erythrocyte Sedimentation Rate 9 mm/hr (0-10)
== END 2021-03-03 13:14 | disposition home or self-care (01) ==
PROVIDERS: PCP Family Medicine; Referring Provider Internal Medicine Rheumatology; Visit Provider Internal Medicine Rheumatology
DX: M45.0 Ankylosing spondylitis of multiple sites in spine (principal); K50.90 Crohn's disease, unspecified, without complications; Z79.899 Other long term (current) drug therapy
CPT/HCPCS: 80076; 82565; 85025; 85651; 96365; 96375; J1200; J1745; J7050; J7512

== ENCOUNTER → 2021-03-27 12:51 | Outpatient (BNVA) | payer MEDICARE, BC, SELFPAY | PROVIDERS: PCP Family Medicine; Visit Provider Nurse Practitioner | DX: F33.1 Major depressive disorder, recurrent, moderate (principal); F10.21 Alcohol dependence, in remission | CPT/HCPCS: 99214 ==

== ENCOUNTER 2021-04-28 13:22 | Outpatient (CLI) | payer MEDICARE, BC, SELFPAY ==
[2021-04-28 13:39] VITALS: BP 129/81; PULSE 83; RESP 18; TEMP 36.5; O2SAT 97
[2021-04-28] MEDS: sodium chloride 0.9% 250 ML 75 ML IV (13:50)
[2021-04-28] MEDS: acetaminophen 325 mg Tablet 650 MG PO (13:50)
[2021-04-28] MEDS: predniSONE 20 mg Tablet PO (13:50)
[2021-04-28] MEDS: diphenhydrAMINE 50 mg/mL SDV 1mL 25 MG IV (13:51)
[2021-04-28 15:19] VITALS: BP 143/96; PULSE 73; RESP 18; TEMP 36.3; O2SAT 96
== END 2021-04-28 13:23 | disposition home or self-care (01) ==
PROVIDERS: PCP Family Medicine; Visit Provider Internal Medicine Rheumatology
DX: M45.9 Ankylosing spondylitis of unspecified sites in spine (principal); K50.90 Crohn's disease, unspecified, without complications
CPT/HCPCS: 96365; 96375; J1200; J1745; J7050; J7512

== ENCOUNTER → 2021-05-22 13:34 | Outpatient (BNVA) | payer MEDICARE, BC, SELFPAY | PROVIDERS: PCP Family Medicine; Visit Provider Internal Medicine Rheumatology | DX: M45.0 Ankylosing spondylitis of multiple sites in spine (principal); K50.90 Crohn's disease, unspecified, without complications; M19.90 Unspecified osteoarthritis, unspecified site; Z79.899 Other long term (current) drug therapy; Z71.89 Other specified counseling | CPT/HCPCS: 99214 ==

== ENCOUNTER → 2021-05-29 11:17 | Outpatient (BNVA) | payer MEDICARE, BC, SELFPAY | PROVIDERS: PCP Family Medicine; Visit Provider Specialist | DX: G24.3 Spasmodic torticollis (principal) | CPT/HCPCS: 64616; J0585 ==

== ENCOUNTER 2021-06-09 13:30 | Outpatient (CLI) | payer MEDICARE, BC, SELFPAY ==
[2021-06-09 14:01] VITALS: BP 132/88; PULSE 86; RESP 18; TEMP 36.6; O2SAT 97
[2021-06-09 14:05] LABS: Basophils % 0.4 %; Eosinophils # 0.1 10^3/uL (0.0-0.8); Eosinophils % 1.3 %; Hematocrit 44.9 % (42.0-52.0); Hemoglobin 15.2 g/dL (11.7-16.6); Lymphocytes # 1.8 10^3/uL (0.8-4.8); Lymphocytes % 26.3 %; Mean Corpuscular HGB Conc 33.9 g/dL (30.0-36.0); Mean Corpuscular Hemoglobin 31.4 pg (28.0-34.0); Mean Corpuscular Volume 92.8 fl (80-94); Mean Platelet Volume 9.5 fL (7.4-10.4); Monocytes # 0.3 10^3/uL (0.2-0.9); Neutrophils # 4.55 10^3/uL (1.8-7.7); Neutrophils % 66.4 %; Nucleated Red Blood Cells % 0 %; Platelet Count 196 10^3/cmm (130-400); Red Blood Count 4.84 10^6/uL (4.1-5.3); Red Cell Distribution Width 13.9 % (12.1-15.1); White Blood Count 6.9 10^3/uL (4.0-10.0)
[2021-06-09] MEDS: predniSONE 20 mg Tablet PO (14:07)
[2021-06-09] MEDS: acetaminophen 325 mg Tablet 650 MG PO (14:07)
[2021-06-09] MEDS: diphenhydrAMINE 50 mg/mL SDV 1mL 25 MG IV (14:10)
[2021-06-09 14:22] LABS: Alanine Aminotransferase 23 U/L (0-41); Albumin Level 4.7 g/dL (3.5-5.2); Alkaline Phosphatase 107 IU/L (40-130); Aspartate Amino Transferase 24 U/L (0-40); Globulin 3.4 g/dL (1.3-4.6); Glomerular Filtration Rate 73.4 mL/min (90-130); Total Bilirubin 0.9 mg/dL (0.15-1.2); Total Protein 8.1 g/dL (6.6-8.7)
[2021-06-09 14:26] LABS: Erythrocyte Sedimentation Rate 24 mm/hr (0-10)
[2021-06-09] MEDS: sodium chloride 0.9% 250 ML 50 ML IV (14:30)
[2021-06-09 15:38] VITALS: BP 159/95; PULSE 79; RESP 18; TEMP 36.4; O2SAT 96
== END 2021-06-09 13:31 | disposition home or self-care (01) ==
PROVIDERS: PCP Family Medicine; Visit Provider Internal Medicine Rheumatology
DX: M45.0 Ankylosing spondylitis of multiple sites in spine (principal); K50.90 Crohn's disease, unspecified, without complications; Z87.891 Personal history of nicotine dependence
CPT/HCPCS: 80076; 82565; 85025; 85651; 96365; 96375; J1200; J1745; J7050; J7512

== ENCOUNTER → 2021-06-23 12:48 | Outpatient (BNVA) | payer MEDICARE, BC, SELFPAY | PROVIDERS: PCP Family Medicine; Visit Provider Nurse Practitioner | DX: F33.1 Major depressive disorder, recurrent, moderate (principal); F17.210 Nicotine dependence, cigarettes, uncomplicated; F10.21 Alcohol dependence, in remission | CPT/HCPCS: 99214 ==

== ENCOUNTER 2021-08-04 13:34 | Outpatient (CLI) | payer MEDICARE, BC, SELFPAY ==
[2021-08-04 13:54] VITALS: BP 122/78; PULSE 86; RESP 18; TEMP 36.2; O2SAT 97
[2021-08-04 14:15] LABS: Basophils % 0.3 %; Eosinophils # 0.2 10^3/uL (0.0-0.8); Eosinophils % 2.2 %; Hematocrit 44.4 % (42.0-52.0); Hemoglobin 15.2 g/dL (11.7-16.6); Lymphocytes # 2.3 10^3/uL (0.8-4.8); Lymphocytes % 34.7 %; Mean Corpuscular HGB Conc 34.2 g/dL (30.0-36.0); Mean Corpuscular Hemoglobin 31.9 pg (28.0-34.0); Mean Corpuscular Volume 93.3 fl (80-94); Mean Platelet Volume 9.6 fL (7.4-10.4); Monocytes # 0.4 10^3/uL (0.2-0.9); Monocytes % 6.4 %; Neutrophils # 3.77 10^3/uL (1.8-7.7); Neutrophils % 56.1 %; Nucleated Red Blood Cells % 0 %; Platelet Count 206 10^3/cmm (130-400); Red Blood Count 4.76 10^6/uL (4.1-5.3); White Blood Count 6.7 10^3/uL (4.0-10.0)
[2021-08-04] MEDS: acetaminophen 325 mg Tablet 650 MG PO (14:16)
[2021-08-04] MEDS: predniSONE 20 mg Tablet PO (14:16)
[2021-08-04] MEDS: diphenhydrAMINE 50 mg/mL SDV 1mL 25 MG IV (14:18)
[2021-08-04] MEDS: sodium chloride 0.9% 250 ML 50 ML IV (14:18)
[2021-08-04 14:30] LABS: Erythrocyte Sedimentation Rate 16 mm/hr (0-10)
[2021-08-04 14:41] LABS: Alanine Aminotransferase 17 U/L (0-41); Albumin Level 4.4 g/dL (3.5-5.2); Alkaline Phosphatase 107 IU/L (40-130); Globulin 3.5 g/dL (1.3-4.6); Glomerular Filtration Rate 73.4 mL/min (90-130); Total Bilirubin 0.8 mg/dL (0.15-1.2); Total Protein 7.9 g/dL (6.6-8.7)
[2021-08-04 14:42] LABS: Aspartate Amino Transferase 27 U/L (0-40)
[2021-08-04 15:34] VITALS: BP 129/85; PULSE 79; RESP 18; TEMP 35.9; O2SAT 97
== END 2021-08-04 13:35 | disposition home or self-care (01) ==
LOC: ONCMED 13:36
PROVIDERS: PCP Family Medicine; Visit Provider Internal Medicine Rheumatology
DX: K50.90 Crohn's disease, unspecified, without complications (principal); M45.0 Ankylosing spondylitis of multiple sites in spine; Z79.899 Other long term (current) drug therapy
CPT/HCPCS: 80076; 82565; 85025; 85651; 96365; 96375; J1200; J1745; J7050; J7512

== ENCOUNTER → 2021-08-05 10:16 | Outpatient (BNVA) | payer MEDICARE, BC, SELFPAY | PROVIDERS: PCP Family Medicine; Visit Provider Nurse Practitioner | DX: F33.1 Major depressive disorder, recurrent, moderate (principal); F17.210 Nicotine dependence, cigarettes, uncomplicated; F10.21 Alcohol dependence, in remission | CPT/HCPCS: 99214 ==

== ENCOUNTER → 2021-08-21 11:41 | Outpatient (BNVA) | payer MEDICARE, BC, SELFPAY | PROVIDERS: PCP Family Medicine; Visit Provider Specialist | DX: G24.3 Spasmodic torticollis (principal) | CPT/HCPCS: 64616; J0585 ==

== ENCOUNTER → 2021-09-02 11:42 | Outpatient (BNVA) | payer MEDICARE, BC, SELFPAY | PROVIDERS: PCP Family Medicine; Visit Provider Podiatrist Foot & Ankle Surgery | DX: L84 Corns and callosities (principal); I73.9 Peripheral vascular disease, unspecified; E11.42 Type 2 diabetes mellitus with diabetic polyneuropathy; B35.1 Tinea unguium; E11.8 Type 2 diabetes mellitus with unspecified complications | CPT/HCPCS: 11056; 11721 ==

== ENCOUNTER 2021-09-15 13:04 | Outpatient (CLI) | payer MEDICARE, BC, SELFPAY ==
[2021-09-15 13:11] VITALS: BP 131/85; PULSE 88; RESP 18; TEMP 36.2; O2SAT 97
[2021-09-15 13:37] LABS: Basophils % 0.5 %; Eosinophils # 0.2 10^3/uL (0.0-0.8); Eosinophils % 2.1 %; Hematocrit 43.9 % (42.0-52.0); Hemoglobin 15.3 g/dL (11.7-16.6); Lymphocytes # 1.6 10^3/uL (0.8-4.8); Mean Corpuscular HGB Conc 34.9 g/dL (30.0-36.0); Mean Corpuscular Hemoglobin 31.9 pg (28.0-34.0); Mean Corpuscular Volume 91.5 fl (80-94); Mean Platelet Volume 9.5 fL (7.4-10.4); Monocytes # 0.4 10^3/uL (0.2-0.9); Monocytes % 4.6 %; Neutrophils # 5.38 10^3/uL (1.8-7.7); Neutrophils % 71.5 %; Nucleated Red Blood Cells % 0 %; Platelet Count 192 10^3/cmm (130-400); Red Cell Distribution Width 12.7 % (12.1-15.1); White Blood Count 7.5 10^3/uL (4.0-10.0)
[2021-09-15] MEDS: sodium chloride 0.9% 250 ML 50 ML IV (13:44)
[2021-09-15] MEDS: acetaminophen 325 mg Tablet 650 MG PO (13:45)
[2021-09-15] MEDS: predniSONE 20 mg Tablet PO (13:48)
[2021-09-15] MEDS: diphenhydrAMINE 50 mg/mL SDV 1mL 25 MG IVP (13:49)
[2021-09-15 13:53] LABS: Erythrocyte Sedimentation Rate 20 mm/hr (0-10)
[2021-09-15 13:56] LABS: Alanine Aminotransferase 18 U/L (0-41); Albumin Level 4.4 g/dL (3.5-5.2); Alkaline Phosphatase 109 IU/L (40-130); Aspartate Amino Transferase 19 U/L (0-40); Globulin 3.3 g/dL (1.3-4.6); Glomerular Filtration Rate 92.1 mL/min (90-130); Total Bilirubin 0.7 mg/dL (0.15-1.2); Total Protein 7.7 g/dL (6.6-8.7)
[2021-09-15 14:57] VITALS: BP 142/86; PULSE 84; RESP 18; TEMP 36.4; O2SAT 98
== END 2021-09-15 13:05 | disposition home or self-care (01) ==
LOC: ONCMED 13:05
PROVIDERS: PCP Family Medicine; Referring Provider Internal Medicine Rheumatology; Visit Provider Internal Medicine Rheumatology
DX: M45.0 Ankylosing spondylitis of multiple sites in spine (principal); K50.90 Crohn's disease, unspecified, without complications; Z79.899 Other long term (current) drug therapy
CPT/HCPCS: 80076; 82565; 85025; 85651; 96365; 96375; J1200; J1745; J7050; J7512

== ENCOUNTER → 2021-09-18 13:48 | Outpatient (BNVA) | payer MEDICARE, BC, SELFPAY | PROVIDERS: PCP Family Medicine; Visit Provider Internal Medicine Rheumatology | DX: M45.0 Ankylosing spondylitis of multiple sites in spine (principal); K50.90 Crohn's disease, unspecified, without complications; M19.90 Unspecified osteoarthritis, unspecified site; Z79.899 Other long term (current) drug therapy | CPT/HCPCS: 99214 ==

== ENCOUNTER 2021-10-27 13:10 | Outpatient (CLI) | payer MEDICARE, BC, SELFPAY ==
[2021-10-27 13:19] VITALS: BP 145/93; PULSE 76; RESP 18; TEMP 36.6; O2SAT 98
[2021-10-27] MEDS: acetaminophen 325 mg Tablet 650 MG PO (13:45)
[2021-10-27] MEDS: sodium chloride 0.9% 250 ML 50 ML IV (13:45)
[2021-10-27] MEDS: predniSONE 20 mg Tablet PO (13:46)
[2021-10-27] MEDS: diphenhydrAMINE 50 mg/mL SDV 1mL 25 MG IVP (13:47)
[2021-10-27 15:05] VITALS: BP 158/98; PULSE 72; RESP 18; TEMP 36.4; O2SAT 98
== END 2021-10-27 13:11 | disposition home or self-care (01) ==
PROVIDERS: PCP Family Medicine; Referring Provider Internal Medicine Rheumatology; Visit Provider Internal Medicine Rheumatology
DX: M45.0 Ankylosing spondylitis of multiple sites in spine (principal); K50.90 Crohn's disease, unspecified, without complications
CPT/HCPCS: 96365; 96375; J1200; J1745; J7050; J7512

== ENCOUNTER → 2021-11-13 10:50 | Outpatient (BNVA) | payer MEDICARE, BC, SELFPAY | PROVIDERS: PCP Family Medicine; Visit Provider Specialist | DX: G24.3 Spasmodic torticollis (principal) | CPT/HCPCS: 64616; J0585 ==

== ENCOUNTER 2021-12-08 13:12 | Outpatient (CLI) | payer MEDICARE, BC, SELFPAY ==
[2021-12-08 13:28] VITALS: BP 141/90; PULSE 84; RESP 18; TEMP 36; O2SAT 96
[2021-12-08] MEDS: sodium chloride 0.9% 250 ML 50 ML IV (14:04)
[2021-12-08] MEDS: acetaminophen 325 mg Tablet 650 MG PO (14:05)
[2021-12-08] MEDS: predniSONE 20 mg Tablet PO (14:06)
[2021-12-08] MEDS: diphenhydrAMINE 50 mg/mL SDV 1mL 25 MG IVP (14:07)
[2021-12-08 15:24] VITALS: BP 141/88; PULSE 74; RESP 18; TEMP 36.3; O2SAT 96
== END 2021-12-08 13:13 | disposition home or self-care (01) ==
PROVIDERS: PCP Family Medicine; Visit Provider Internal Medicine Rheumatology
DX: M45.0 Ankylosing spondylitis of multiple sites in spine (principal); K50.90 Crohn's disease, unspecified, without complications
CPT/HCPCS: 96365; 96375; J1200; J1745; J7050; J7512

== ENCOUNTER → 2022-01-06 10:32 | Outpatient (BNVA) | payer MEDICARE, BC, SELFPAY | PROVIDERS: PCP Family Medicine; Visit Provider Podiatrist Foot & Ankle Surgery | DX: E11.42 Type 2 diabetes mellitus with diabetic polyneuropathy (principal); I73.9 Peripheral vascular disease, unspecified; B35.1 Tinea unguium; L84 Corns and callosities; Z79.84 Long term (current) use of oral hypoglycemic drugs; Z79.4 Long term (current) use of insulin | CPT/HCPCS: 11056; 11721 ==

== ENCOUNTER 2022-01-20 12:57 | Outpatient (CLI) | payer MEDICARE, BC, SELFPAY ==
[2022-01-20 13:35] VITALS: BP 131/83; PULSE 75; RESP 18; TEMP 36.2; O2SAT 97
[2022-01-20 13:47] LABS: Basophils % 0.5 %; Eosinophils # 0.2 10^3/uL (0.0-0.8); Eosinophils % 2.3 %; Hematocrit 44.1 % (42.0-52.0); Lymphocytes # 2.3 10^3/uL (0.8-4.8); Lymphocytes % 34.6 %; Mean Corpuscular Hemoglobin 30.4 pg (28.0-34.0); Mean Corpuscular Volume 89.5 fl (80-94); Mean Platelet Volume 9.6 fL (7.4-10.4); Monocytes # 0.4 10^3/uL (0.2-0.9); Monocytes % 5.9 %; Neutrophils # 3.71 10^3/uL (1.8-7.7); Neutrophils % 56.4 %; Nucleated Red Blood Cells % 0 %; Platelet Count 185 10^3/cmm (130-400); Red Blood Count 4.93 10^6/uL (4.1-5.3); Red Cell Distribution Width 13.2 % (12.1-15.1); White Blood Count 6.6 10^3/uL (4.0-10.0)
[2022-01-20] MEDS: sodium chloride 0.9% 250 ML 50 ML IV (13:53)
[2022-01-20] MEDS: diphenhydrAMINE 50 mg/mL SDV 1mL 25 MG IVP (13:55)
[2022-01-20] MEDS: acetaminophen 325 mg Tablet 650 MG PO (13:58)
[2022-01-20] MEDS: predniSONE 20 mg Tablet PO (13:59)
[2022-01-20 14:03] LABS: Alanine Aminotransferase 24 U/L (0-41); Alkaline Phosphatase 112 U/L (40-130); Aspartate Amino Transferase 23 U/L (0-40); Globulin 3.5 g/dL (1.3-4.6); Glomerular Filtration Rate 73.1 mL/min (90-130); Total Bilirubin 0.7 mg/dL (0.15-1.2); Total Protein 7.5 g/dL (6.6-8.7)
[2022-01-20 15:13] VITALS: BP 129/87; PULSE 78; RESP 18; TEMP 36.3; O2SAT 99
[2022-01-20 15:23] LABS: Erythrocyte Sedimentation Rate 14 mm/hr (0-10)
== END 2022-01-20 12:58 | disposition home or self-care (01) ==
PROVIDERS: PCP Family Medicine; Visit Provider Internal Medicine Rheumatology
DX: K50.90 Crohn's disease, unspecified, without complications (principal)
CPT/HCPCS: 80076; 82565; 85025; 85651; 96365; 96375; A4222; J1200; J1745; J7050; J7512

== ENCOUNTER → 2022-01-22 12:41 | Outpatient (BNVA) | payer MEDICARE, BC, SELFPAY | PROVIDERS: PCP Family Medicine; Visit Provider Internal Medicine Rheumatology | DX: M45.0 Ankylosing spondylitis of multiple sites in spine (principal); K50.90 Crohn's disease, unspecified, without complications; Z79.899 Other long term (current) drug therapy | CPT/HCPCS: 99214 ==

== ENCOUNTER → 2022-02-26 10:48 | Outpatient (BNVA) | payer MEDICARE, BC, SELFPAY | PROVIDERS: PCP Family Medicine; Visit Provider Specialist | DX: G24.3 Spasmodic torticollis (principal) | CPT/HCPCS: 64616; J0585 ==

== ENCOUNTER 2022-03-03 12:56 | Outpatient (CLI) | payer MEDICARE, BC, SELFPAY ==
[2022-03-03 13:27] VITALS: BP 109/71; PULSE 79; RESP 18; TEMP 36.3; O2SAT 97
[2022-03-03] MEDS: sodium chloride 0.9% 250 ML 50 ML IV (13:58)
[2022-03-03] MEDS: acetaminophen 325 mg Tablet 650 MG PO (13:59)
[2022-03-03] MEDS: predniSONE 20 mg Tablet PO (14:01)
[2022-03-03] MEDS: diphenhydrAMINE 50 mg/mL SDV 1mL 25 MG IVP (14:01)
[2022-03-03 15:12] VITALS: BP 121/80; PULSE 71; RESP 18; TEMP 36.1; O2SAT 98
== END 2022-03-03 12:57 | disposition home or self-care (01) ==
PROVIDERS: PCP Family Medicine; Visit Provider Internal Medicine Rheumatology
DX: K50.90 Crohn's disease, unspecified, without complications (principal)
CPT/HCPCS: 96365; 96375; A4222; J1200; J1745; J7050; J7512

== ENCOUNTER 2022-04-29 12:02 | Outpatient (CLI) | payer MEDICARE, BC, SELFPAY ==
[2022-04-29 12:37] VITALS: BP 121/80; PULSE 83; RESP 18; TEMP 36.3; O2SAT 97
[2022-04-29 12:40] LABS: Basophils % 0.4 %; Eosinophils # 0.1 10^3/uL (0.0-0.8); Eosinophils % 1.3 %; Hematocrit 44.8 % (42.0-52.0); Lymphocytes # 1.8 10^3/uL (0.8-4.8); Lymphocytes % 26.5 %; Mean Corpuscular HGB Conc 33.5 g/dL (30.0-36.0); Mean Corpuscular Volume 89.6 fl (80-94); Mean Platelet Volume 9.3 fL (7.4-10.4); Monocytes # 0.5 10^3/uL (0.2-0.9); Monocytes % 6.6 %; Neutrophils # 4.43 10^3/uL (1.8-7.7); Neutrophils % 64.6 %; Nucleated Red Blood Cells % 0 %; Platelet Count 170 10^3/cmm (130-400); Red Cell Distribution Width 13.8 % (12.1-15.1); White Blood Count 6.9 10^3/uL (4.0-10.0)
[2022-04-29 12:48] LABS: Erythrocyte Sedimentation Rate 23 mm/hr (0-10)
[2022-04-29] MEDS: sodium chloride 0.9% 250 ML 50 ML IV (12:55)
[2022-04-29] MEDS: acetaminophen 325 mg Tablet 650 MG PO (12:56)
[2022-04-29] MEDS: diphenhydrAMINE 50 mg/mL SDV 1mL 25 MG IVP (12:57)
[2022-04-29] MEDS: predniSONE 20 mg Tablet PO (12:57)
[2022-04-29 13:10] LABS: Alanine Aminotransferase 20 U/L (0-41); Albumin Level 4.1 g/dL (3.5-5.2); Alkaline Phosphatase 110 U/L (40-130); Globulin 3.7 g/dL (1.3-4.6); Glomerular Filtration Rate 73.1 mL/min (90-130); Total Bilirubin 0.8 mg/dL (0.15-1.2); Total Protein 7.8 g/dL (6.6-8.7)
[2022-04-29 13:12] LABS: Aspartate Amino Transferase 29 U/L (0-40)
[2022-04-29 14:19] VITALS: BP 133/88; PULSE 81; RESP 18; TEMP 36.3; O2SAT 97
== END 2022-04-29 12:03 | disposition home or self-care (01) ==
LOC: ONCMED 12:02
PROVIDERS: PCP Family Medicine; Visit Provider Internal Medicine Rheumatology
DX: K50.90 Crohn's disease, unspecified, without complications (principal); Z79.899 Other long term (current) drug therapy
CPT/HCPCS: 80076; 82565; 85025; 85651; 96365; 96375; A4222; J1200; J1745; J7050; J7512

== ENCOUNTER → 2022-05-05 11:19 | Outpatient (BNVA) | payer MEDICARE, BC, SELFPAY | PROVIDERS: PCP Family Medicine; Visit Provider Podiatrist Foot & Ankle Surgery | DX: I73.9 Peripheral vascular disease, unspecified (principal); B35.1 Tinea unguium; E11.42 Type 2 diabetes mellitus with diabetic polyneuropathy; L84 Corns and callosities; Z79.84 Long term (current) use of oral hypoglycemic drugs; Z79.4 Long term (current) use of insulin | CPT/HCPCS: 11056; 11721 ==

== ENCOUNTER → 2022-05-21 11:41 | Outpatient (BNVA) | payer MEDICARE, BC, SELFPAY | PROVIDERS: PCP Family Medicine; Visit Provider Specialist | DX: G24.3 Spasmodic torticollis (principal); M45.0 Ankylosing spondylitis of multiple sites in spine | CPT/HCPCS: 64616; J0585 ==

== ENCOUNTER → 2022-05-25 12:46 | Outpatient (BNVA) | payer MEDICARE, BC, SELFPAY | PROVIDERS: PCP Family Medicine; Visit Provider Internal Medicine Rheumatology | DX: M06.08 Rheumatoid arthritis without rheumatoid factor, vertebrae (principal); K50.90 Crohn's disease, unspecified, without complications; Z79.899 Other long term (current) drug therapy; M45.0 Ankylosing spondylitis of multiple sites in spine; Z87.39 Personal history of other diseases of the musculoskeletal system and connective tissue | CPT/HCPCS: 99214 ==

== ENCOUNTER 2022-06-10 12:58 | Oncology outpatient (recurring) (ONCR) | payer MEDICARE, BC, SELFPAY ==
[2022-06-10 13:14] VITALS: BP 114/77; PULSE 85; RESP 18; TEMP 36.4; O2SAT 96
[2022-06-10] MEDS: sodium chloride 0.9% 250 ML 50 ML IV (13:38)
[2022-06-10] MEDS: acetaminophen 325 mg Tablet 650 MG PO (13:39)
[2022-06-10] MEDS: predniSONE 20 mg Tablet PO (13:40)
[2022-06-10] MEDS: diphenhydrAMINE 50 mg/mL SDV 1mL 25 MG IVP (13:41)
[2022-06-10 15:28] VITALS: BP 145/89; PULSE 75; RESP 18; TEMP 36.3; O2SAT 97
== END 2022-07-10 23:59 | disposition home or self-care (01) ==
PROVIDERS: PCP Family Medicine; Visit Provider Internal Medicine Rheumatology
DX: M06.08 Rheumatoid arthritis without rheumatoid factor, vertebrae (principal); K50.90 Crohn's disease, unspecified, without complications; M45.0 Ankylosing spondylitis of multiple sites in spine; Z79.899 Other long term (current) drug therapy
CPT/HCPCS: 96365; 96375; J1200; J1745; J7050; J7512

== ENCOUNTER 2022-07-22 12:59 | Oncology outpatient (recurring) (ONCR) | payer MEDICARE, BC, SELFPAY ==
[2022-07-22 13:25] VITALS: BP 110/76; PULSE 97; RESP 18; TEMP 36.6; O2SAT 96
[2022-07-22 13:36] LABS: Basophils % 0.3 %; Eosinophils # 0.1 10^3/uL (0.0-0.8); Eosinophils % 1.5 %; Hematocrit 45.5 % (42.0-52.0); Hemoglobin 15.4 g/dL (11.7-16.6); Lymphocytes # 1.8 10^3/uL (0.8-4.8); Lymphocytes % 21.2 %; Mean Corpuscular HGB Conc 33.8 g/dL (30.0-36.0); Mean Corpuscular Hemoglobin 30.4 pg (28.0-34.0); Mean Corpuscular Volume 89.7 fl (80-94); Mean Platelet Volume 9.7 fL (7.4-10.4); Monocytes # 0.5 10^3/uL (0.2-0.9); Monocytes % 5.3 %; Neutrophils # 6.19 10^3/uL (1.8-7.7); Neutrophils % 71.4 %; Nucleated Red Blood Cells % 0 %; Platelet Count 194 10^3/cmm (130-400); Red Blood Count 5.07 10^6/uL (4.1-5.3); Red Cell Distribution Width 13.4 % (12.1-15.1); White Blood Count 8.7 10^3/uL (4.0-10.0)
[2022-07-22] MEDS: diphenhydrAMINE 50 mg/mL SDV 1mL 25 MG IVP (13:36)
[2022-07-22] MEDS: acetaminophen 325 mg Tablet 650 MG PO (13:36)
[2022-07-22] MEDS: predniSONE 20 mg Tablet PO (13:36)
[2022-07-22] MEDS: sodium chloride 0.9% 250 ML 75 ML IV (13:37)
== END 2022-08-09 23:59 | disposition home or self-care (01) ==
LOC: ONCMED 13:00
PROVIDERS: PCP Family Medicine; Visit Provider Internal Medicine Rheumatology
DX: K50.90 Crohn's disease, unspecified, without complications
CPT/HCPCS: 85025; 96375; 96413; 96415; J1200; J1745; J7050; J7512

== ENCOUNTER → 2022-08-05 13:55 | Outpatient (BNVA) | payer MEDICARE, BC, SELFPAY | PROVIDERS: PCP Family Medicine; Visit Provider Podiatrist Foot & Ankle Surgery | DX: E11.8 Type 2 diabetes mellitus with unspecified complications (principal); I73.9 Peripheral vascular disease, unspecified; E11.42 Type 2 diabetes mellitus with diabetic polyneuropathy; B35.1 Tinea unguium; L84 Corns and callosities | CPT/HCPCS: 11056; 11721 ==

== ENCOUNTER → 2022-08-24 13:20 | Outpatient (BNVA) | payer MEDICARE, BC, SELFPAY | PROVIDERS: PCP Family Medicine; Visit Provider Nurse Practitioner | DX: Z79.899 Other long term (current) drug therapy (principal) | CPT/HCPCS: 80061 ==

== ENCOUNTER 2022-09-02 13:01 | Oncology outpatient (recurring) (ONCR) | payer MEDICARE, BC, SELFPAY ==
[2022-09-02 13:18] VITALS: BP 118/79; PULSE 80; RESP 18; TEMP 36.3; O2SAT 94
[2022-09-02 13:19] VITALS: BP 137/90; PULSE 95; RESP 18; TEMP 36.1; O2SAT 96
[2022-09-02] MEDS: sodium chloride 0.9% 250 ML 50 ML IV (13:27)
[2022-09-02] MEDS: acetaminophen 325 mg Tablet 650 MG PO (13:28)
[2022-09-02] MEDS: predniSONE 20 mg Tablet PO (13:29)
[2022-09-02] MEDS: diphenhydrAMINE 50 mg/mL SDV 1mL 25 MG IVP (13:30)
[2022-09-02 14:23] VITALS: BP 126/84; PULSE 83; RESP 18; TEMP 36.3; O2SAT 95
[2022-09-02 16:02] VITALS: BP 117/79; PULSE 78; RESP 18; TEMP 36.2; O2SAT 96
== END 2022-09-09 23:59 | disposition home or self-care (01) ==
PROVIDERS: PCP Family Medicine; Visit Provider Internal Medicine Rheumatology
DX: K50.90 Crohn's disease, unspecified, without complications (principal)
CPT/HCPCS: 96365; 96366; 96375; 96413; 96415; J1200; J1745; J7050; J7512

== ENCOUNTER → 2022-09-10 10:51 | Outpatient (BNVA) | payer MEDICARE, BC, SELFPAY | PROVIDERS: PCP Family Medicine; Visit Provider Specialist | DX: G24.3 Spasmodic torticollis (principal) | CPT/HCPCS: 64616; J0585 ==

== ENCOUNTER → 2022-09-21 12:49 | Outpatient (BNVA) | payer MEDICARE, BC, SELFPAY | PROVIDERS: PCP Family Medicine; Visit Provider Internal Medicine Rheumatology | DX: M06.08 Rheumatoid arthritis without rheumatoid factor, vertebrae (principal); K50.90 Crohn's disease, unspecified, without complications; Z79.899 Other long term (current) drug therapy; M45.0 Ankylosing spondylitis of multiple sites in spine | CPT/HCPCS: 99214 ==

== ENCOUNTER → 2022-10-07 13:16 | Outpatient (BNVA) | payer MEDICARE, BC, SELFPAY | PROVIDERS: PCP Family Medicine; Visit Provider Podiatrist Foot & Ankle Surgery | DX: I73.9 Peripheral vascular disease, unspecified (principal); L60.8 Other nail disorders; L84 Corns and callosities; E11.42 Type 2 diabetes mellitus with diabetic polyneuropathy; B35.1 Tinea unguium; Z79.4 Long term (current) use of insulin; Z79.84 Long term (current) use of oral hypoglycemic drugs | CPT/HCPCS: 11056; 11721 ==

== ENCOUNTER 2022-10-14 13:05 | Oncology outpatient (recurring) (ONCR) | payer MEDICARE, BC, SELFPAY ==
[2022-10-14] VITALS (7 sets, daily range): BP systolic 120–148; BP diastolic 78–97; PULSE 72–87; RESP 16–18; TEMP 36.1–36.6; O2SAT 95–98
[2022-10-14] MEDS: sodium chloride 0.9% 250 ML 75 ML IV (13:47)
[2022-10-14] MEDS: predniSONE 20 mg Tablet PO (13:47)
[2022-10-14 13:48] LABS: Basophils % 0.3 %; Eosinophils # 0.1 10^3/uL (0.0-0.8); Eosinophils % 1.8 %; Hematocrit 44.1 % (42.0-52.0); Hemoglobin 14.9 g/dL (11.7-16.6); Lymphocytes # 2.2 10^3/uL (0.8-4.8); Lymphocytes % 35.7 %; Mean Corpuscular HGB Conc 33.8 g/dL (30.0-36.0); Mean Corpuscular Hemoglobin 30.5 pg (28.0-34.0); Mean Corpuscular Volume 90.4 fl (80-94); Mean Platelet Volume 9.7 fL (7.4-10.4); Monocytes # 0.4 10^3/uL (0.2-0.9); Monocytes % 6.6 %; Neutrophils # 3.39 10^3/uL (1.8-7.7); Nucleated Red Blood Cells % 0 %; Platelet Count 175 10^3/cmm (130-400); Red Blood Count 4.88 10^6/uL (4.1-5.3); Red Cell Distribution Width 13.2 % (12.1-15.1); White Blood Count 6.2 10^3/uL (4.0-10.0)
[2022-10-14] MEDS: acetaminophen 325 mg Tablet 650 MG PO (13:48)
[2022-10-14] MEDS: diphenhydrAMINE 50 mg/mL SDV 1mL 25 MG IVP (13:48)
[2022-10-14 14:09] LABS: Alanine Aminotransferase 18 U/L (0-41); Albumin Level 4.2 g/dL (3.5-5.2); Alkaline Phosphatase 120 U/L (40-130); Aspartate Amino Transferase 21 U/L (0-40); Globulin 3.1 g/dL (1.3-4.6); Glomerular Filtration Rate 65.8 mL/min (90-130); Total Bilirubin 0.5 mg/dL (0.15-1.2); Total Protein 7.3 g/dL (6.6-8.7)
[2022-10-14 14:20] LABS: Erythrocyte Sedimentation Rate 20 mm/hr (0-10)
== END 2022-11-09 23:59 | disposition home or self-care (01) ==
LOC: ONCMED 13:05
PROVIDERS: PCP Family Medicine; Visit Provider Internal Medicine Rheumatology
DX: K50.90 Crohn's disease, unspecified, without complications (principal)
CPT/HCPCS: 80076; 82565; 85025; 85651; 96375; 96413; 96415; J1200; J7050; J7512; Q5104

== ENCOUNTER 2022-11-25 12:58 | Oncology outpatient (recurring) (ONCR) | payer MEDICARE, BC, SELFPAY ==
[2022-11-25] VITALS (8 sets, daily range): BP systolic 119–157; BP diastolic 68–96; PULSE 72–80; RESP 16–72; TEMP 35.7–36.4; O2SAT 94–98; BMI 43.8
[2022-11-25] MEDS: sodium chloride 0.9% 250 ML 75 ML IV (14:32)
[2022-11-25] MEDS: predniSONE 20 mg Tablet PO (14:32)
[2022-11-25] MEDS: diphenhydrAMINE 50 mg/mL SDV 1mL 25 MG IVP (14:32)
[2022-11-25] MEDS: acetaminophen 325 mg Tablet 650 MG PO (14:33)
== END 2022-12-10 23:59 | disposition home or self-care (01) ==
PROVIDERS: PCP Family Medicine; Visit Provider Internal Medicine Rheumatology
DX: K50.90 Crohn's disease, unspecified, without complications (principal); Z79.899 Other long term (current) drug therapy
CPT/HCPCS: 96413; 96415; J1200; J7050; J7512; Q5104

== ENCOUNTER → 2022-12-09 13:56 | Outpatient (BNVA) | payer MEDICARE, BC, SELFPAY | PROVIDERS: PCP Family Medicine; Visit Provider Podiatrist Foot & Ankle Surgery | DX: I73.9 Peripheral vascular disease, unspecified (principal); E11.42 Type 2 diabetes mellitus with diabetic polyneuropathy; B35.1 Tinea unguium; L84 Corns and callosities; Z79.4 Long term (current) use of insulin; Z79.84 Long term (current) use of oral hypoglycemic drugs | CPT/HCPCS: 11056; 11721 ==

== ENCOUNTER → 2022-12-10 11:02 | Outpatient (BNVA) | payer MEDICARE, BC, SELFPAY | PROVIDERS: PCP Family Medicine; Visit Provider Specialist | DX: G24.3 Spasmodic torticollis (principal) | CPT/HCPCS: 64616; J0585 ==

== ENCOUNTER → 2022-12-28 13:29 | Outpatient (BNVA) | payer MEDICARE, BC, SELFPAY | PROVIDERS: PCP Family Medicine; Visit Provider Internal Medicine Rheumatology | DX: M06.08 Rheumatoid arthritis without rheumatoid factor, vertebrae (principal); K50.90 Crohn's disease, unspecified, without complications; Z79.899 Other long term (current) drug therapy; M45.0 Ankylosing spondylitis of multiple sites in spine | CPT/HCPCS: 99214 ==

== ENCOUNTER 2023-01-06 12:50 | Oncology outpatient (recurring) (ONCR) | payer MEDICARE, BC, SELFPAY ==
[2023-01-06] MEDS: sodium chloride 0.9% 250 ML 75 ML IV (13:30)
[2023-01-06] MEDS: predniSONE 20 mg Tablet PO (13:31)
[2023-01-06] MEDS: acetaminophen 325 mg Tablet 650 MG PO (13:31)
[2023-01-06] MEDS: diphenhydrAMINE 50 mg/mL SDV 1mL 25 MG IVP (13:31)
[2023-01-06 14:09] LABS: Basophils % 0.4 %; Eosinophils # 0.1 10^3/uL (0.0-0.8); Eosinophils % 1.2 %; Hematocrit 46.1 % (37-53); Lymphocytes % 27.5 %; Mean Corpuscular HGB Conc 33.8 g/dL (30-55); Mean Corpuscular Hemoglobin 30.7 pg (27-33); Mean Corpuscular Volume 90.7 fl (82-101); Mean Platelet Volume 9.7 fL (7.4-10.4); Monocytes # 0.5 10^3/uL (0.2-0.9); Monocytes % 6.2 %; Neutrophils # 4.64 10^3/uL (1.8-7.7); Neutrophils % 64.3 %; Nucleated Red Blood Cells % 0 %; Platelet Count 190 10^3/cmm (157-399); Red Blood Count 5.08 10^6/uL (3.85-5.65); Red Cell Distribution Width 13.2 % (12.1-15.1); White Blood Count 7.23 10^3/uL (3.29-11.43)
[2023-01-06 14:20] VITALS: BP 119/77; PULSE 81; TEMP 36.3; O2SAT 94
[2023-01-06 14:35] VITALS: BP 114/78; PULSE 78; RESP 17; TEMP 36.6; O2SAT 94
[2023-01-06 14:39] LABS: Alanine Aminotransferase 26 U/L (0-41); Albumin Level 4.1 g/dL (3.5-5.2); Alkaline Phosphatase 121 U/L (40-130); Aspartate Amino Transferase 26 U/L (0-40); Globulin 3.4 g/dL (1.3-4.6); Total Bilirubin 0.8 mg/dL (0.15-1.2); Total Protein 7.5 g/dL (6.6-8.7)
[2023-01-06 15:10] VITALS: BP 118/80; PULSE 74; RESP 17; TEMP 36.4; O2SAT 92
[2023-01-06 15:19] LABS: Erythrocyte Sedimentation Rate 22 mm/hr (0-10)
[2023-01-06 15:35] VITALS: BP 119/66; PULSE 77; RESP 17; TEMP 36.3; O2SAT 92
[2023-01-06 16:05] VITALS: BP 121/79; PULSE 77; RESP 16; TEMP 36.2; O2SAT 94
[2023-01-06 17:02] VITALS: BP 129/81; PULSE 74; TEMP 36.2; O2SAT 95
== END 2023-01-09 23:59 | disposition home or self-care (01) ==
LOC: ONCMED 12:50
PROVIDERS: PCP Family Medicine; Visit Provider Internal Medicine Rheumatology
DX: K50.90 Crohn's disease, unspecified, without complications (principal); M19.90 Unspecified osteoarthritis, unspecified site
CPT/HCPCS: 80076; 82565; 85025; 85651; 96375; 96413; 96415; J1200; J7050; J7512; Q5104

== ENCOUNTER → 2023-02-10 13:54 | Outpatient (BNVA) | payer MEDICARE, BC, SELFPAY | PROVIDERS: PCP Family Medicine; Visit Provider Podiatrist Foot & Ankle Surgery | DX: I73.9 Peripheral vascular disease, unspecified (principal); E11.42 Type 2 diabetes mellitus with diabetic polyneuropathy; B35.1 Tinea unguium; L84 Corns and callosities; M21.41 Flat foot [pes planus] (acquired), right foot; M21.42 Flat foot [pes planus] (acquired), left foot; Z79.4 Long term (current) use of insulin; Z79.84 Long term (current) use of oral hypoglycemic drugs | CPT/HCPCS: 11056; 11721 ==

== ENCOUNTER 2023-02-18 09:00 | Oncology outpatient (recurring) (ONCR) | payer MEDICARE, BC, SELFPAY ==
[2023-02-18] VITALS (7 sets, daily range): BP systolic 121–154; BP diastolic 80–108; PULSE 76–83; RESP 17; TEMP 35.8–36.3; O2SAT 94–97
[2023-02-18] MEDS: sodium chloride 0.9% 250 ML 75 ML IV (09:39)
[2023-02-18] MEDS: acetaminophen 325 mg Tablet 650 MG PO (09:39)
[2023-02-18] MEDS: diphenhydrAMINE 50 mg/mL SDV 1mL 25 MG IVP (09:40)
[2023-02-18] MEDS: methylPREDNISolone sod succ 40 mg SDV IVP (09:45)
== END 2023-03-11 23:59 | disposition home or self-care (01) ==
PROVIDERS: PCP Family Medicine; Visit Provider Internal Medicine Rheumatology
DX: K50.90 Crohn's disease, unspecified, without complications (principal)
CPT/HCPCS: 96375; 96413; 96415; J1200; J2920; J7050; Q5104

== ENCOUNTER → 2023-03-11 12:24 | Outpatient (BNVA) | payer MEDICARE, BC, SELFPAY | PROVIDERS: PCP Family Medicine; Visit Provider Specialist | DX: G24.3 Spasmodic torticollis (principal) | CPT/HCPCS: 64616; J0585 ==

== ENCOUNTER 2023-04-01 07:28 | Oncology outpatient (recurring) (ONCR) | payer MEDICARE, BC, SELFPAY ==
[2023-04-01] VITALS (7 sets, daily range): BP systolic 122–150; BP diastolic 79–93; PULSE 74–81; RESP 16–17; TEMP 35.8–36.4; O2SAT 95–97
[2023-04-01 08:12] LABS: Basophils % 0.6 %; Eosinophils # 0.2 10^3/uL (0.0-0.8); Eosinophils % 2.5 %; Hematocrit 42.6 % (37-53); Lymphocytes # 2.3 10^3/uL (0.8-4.8); Lymphocytes % 36.3 %; Mean Corpuscular HGB Conc 34.3 g/dL (30-55); Mean Corpuscular Hemoglobin 30.7 pg (27-33); Mean Corpuscular Volume 89.7 fl (82-101); Mean Platelet Volume 9.5 fL (7.4-10.4); Monocytes # 0.4 10^3/uL (0.2-0.9); Monocytes % 6.5 %; Neutrophils # 3.42 10^3/uL (1.8-7.7); Neutrophils % 53.9 %; Nucleated Red Blood Cells % 0 %; Platelet Count 172 10^3/cmm (157-399); Red Blood Count 4.75 10^6/uL (3.85-5.65); Red Cell Distribution Width 13.2 % (12.1-15.1); White Blood Count 6.34 10^3/uL (3.29-11.43)
[2023-04-01] MEDS: acetaminophen 325 mg Tablet 650 MG PO (08:19)
[2023-04-01] MEDS: sodium chloride 0.9% 250 ML 75 ML IV (08:20)
[2023-04-01] MEDS: diphenhydrAMINE 50 mg/mL SDV 1mL 25 MG IVP (08:25)
[2023-04-01] MEDS: methylPREDNISolone sod succ 40 mg/mL INJ IVP (08:29)
[2023-04-01 08:34] LABS: Alanine Aminotransferase 21 U/L (0-41); Albumin Level 3.9 g/dL (3.5-5.2); Alkaline Phosphatase 136 U/L (40-130); Aspartate Amino Transferase 23 U/L (0-40); C Reactive Protein 7.1 mg/L (0.0-4.9); Creatinine Clr Calc Pharmacy 80.1383; Globulin 3.2 g/dL (1.3-4.6); Glomerular Filtration Rate 55.1 mL/min (90-130); Total Bilirubin 0.6 mg/dL (0.15-1.2); Total Protein 7.1 g/dL (6.6-8.7)
== END 2023-04-11 23:59 | disposition home or self-care (01) ==
LOC: ONCMED 07:28
PROVIDERS: PCP Family Medicine; Visit Provider Internal Medicine Rheumatology
DX: K50.90 Crohn's disease, unspecified, without complications (principal); M06.9 Rheumatoid arthritis, unspecified
CPT/HCPCS: 80076; 82565; 85025; 86140; 96375; 96413; 96415; J1200; J2920; J7050; Q5104

== ENCOUNTER 2023-05-13 07:51 | Oncology outpatient (recurring) (ONCR) | payer MEDICARE, BC, SELFPAY ==
[2023-05-13] VITALS (8 sets, daily range): BP systolic 120–157; BP diastolic 79–93; PULSE 71–88; RESP 14–18; TEMP 35.7–36.5; O2SAT 91–96
[2023-05-13] MEDS: acetaminophen 325 mg Tablet 650 MG PO (08:46)
[2023-05-13] MEDS: methylPREDNISolone sod succ 40 mg/mL INJ IVP (08:50)
[2023-05-13] MEDS: diphenhydrAMINE 50 mg/mL SDV 1mL 25 MG IVP (08:53)
[2023-05-13] MEDS: sodium chloride 0.9% 250 ML 75 ML IV (08:53)
[2023-05-13] MEDS: SODIUM CHLORIDE 0.9% IV (09:30)
[2023-05-13] MEDS: INFLIXIMAB ABDA IV (09:30)
== END 2023-06-10 23:59 | disposition home or self-care (01) ==
PROVIDERS: PCP Family Medicine; Visit Provider Internal Medicine Rheumatology
DX: K50.90 Crohn's disease, unspecified, without complications (principal)
CPT/HCPCS: 96375; 96413; 96415; J1200; J2920; J7050; Q5104

== ENCOUNTER → 2023-06-08 10:36 | Outpatient (BNVA) | payer MEDICARE, BC, SELFPAY | PROVIDERS: PCP Family Medicine; Visit Provider Podiatrist Foot & Ankle Surgery | DX: I73.9 Peripheral vascular disease, unspecified (principal); E11.42 Type 2 diabetes mellitus with diabetic polyneuropathy; B35.1 Tinea unguium; L84 Corns and callosities; Z79.4 Long term (current) use of insulin; Z79.84 Long term (current) use of oral hypoglycemic drugs | CPT/HCPCS: 11056; 11721 ==

== ENCOUNTER → 2023-06-10 13:02 | Outpatient (BNVA) | payer MEDICARE, BC, SELFPAY | PROVIDERS: PCP Family Medicine; Visit Provider Specialist | DX: G24.3 Spasmodic torticollis (principal) | CPT/HCPCS: 64616; J0585 ==

== ENCOUNTER 2023-06-24 08:56 | Oncology outpatient (recurring) (ONCR) | payer MEDICARE, BC, SELFPAY ==
[2023-06-24 09:54] LABS: Basophils % 0.6 %; Eosinophils # 0.2 10^3/uL (0.0-0.8); Eosinophils % 2.6 %; Hematocrit 42.1 % (37-53); Lymphocytes # 2.1 10^3/uL (0.8-4.8); Lymphocytes % 28.3 %; Mean Corpuscular HGB Conc 33.5 g/dL (30-55); Mean Corpuscular Hemoglobin 30.5 pg (27-33); Mean Corpuscular Volume 90.9 fl (82-101); Mean Platelet Volume 10.1 fL (7.4-10.4); Monocytes # 0.5 10^3/uL (0.2-0.9); Monocytes % 6.2 %; Neutrophils # 4.47 10^3/uL (1.8-7.7); Neutrophils % 61.7 %; Nucleated Red Blood Cells % 0 %; Platelet Count 163 10^3/cmm (157-399); Red Blood Count 4.63 10^6/uL (3.85-5.65); Red Cell Distribution Width 13.6 % (12.1-15.1); White Blood Count 7.24 10^3/uL (3.29-11.43)
[2023-06-24] MEDS: sodium chloride 0.9% 250 ML 75 ML IV (10:01)
[2023-06-24] MEDS: acetaminophen 325 mg Tablet 650 MG PO (10:04)
[2023-06-24] MEDS: methylPREDNISolone sod succ 40 mg/mL INJ IVP (10:04)
[2023-06-24] MEDS: diphenhydrAMINE 50 mg/mL SDV 1mL 25 MG IVP (10:07)
[2023-06-24 10:16] LABS: Alanine Aminotransferase 26 U/L (0-41); Albumin Level 4.1 g/dL (3.5-5.2); Alkaline Phosphatase 98 U/L (40-130); Aspartate Amino Transferase 29 U/L (0-40); C Reactive Protein 3.5 mg/L (0.0-4.9); Creatinine Clr Calc Pharmacy 55.2295; Glomerular Filtration Rate 38.7 mL/min (90-130); Total Bilirubin 0.8 mg/dL (0.15-1.2); Total Protein 7.1 g/dL (6.6-8.7)
[2023-06-24] MEDS: infliximab-abda 540 MG in sodium chloride 0.9% 250 ML 10 MG IV (10:39)
[2023-06-24 10:40] VITALS: BP 125/80; PULSE 78; RESP 16; TEMP 36.5; O2SAT 96
[2023-06-24 11:17] VITALS: BP 110/69; PULSE 82; RESP 16; TEMP 36.4; O2SAT 93
[2023-06-24 11:35] VITALS: BP 119/75; PULSE 80; RESP 16; TEMP 36.3; O2SAT 93
[2023-06-24 11:50] VITALS: BP 118/78; PULSE 82; RESP 16; TEMP 36.3; O2SAT 93
[2023-06-24 12:25] VITALS: BP 117/76; PULSE 82; RESP 18; TEMP 36.1; O2SAT 91
[2023-06-24 13:18] VITALS: BP 131/83; PULSE 81; RESP 18; TEMP 36.1; O2SAT 95
== END 2023-07-11 23:59 | disposition home or self-care (01) ==
LOC: ONCMED 08:57
PROVIDERS: PCP Family Medicine; Visit Provider Internal Medicine Rheumatology
DX: K50.90 Crohn's disease, unspecified, without complications (principal); M06.9 Rheumatoid arthritis, unspecified
CPT/HCPCS: 80076; 82565; 85025; 86140; 96375; 96413; 96415; J1200; J2920; J7050; Q5104

== ENCOUNTER 2023-08-05 08:27 | Oncology outpatient (recurring) (ONCR) | payer MEDICARE, BC, SELFPAY ==
[2023-08-05] VITALS (8 sets, daily range): BP systolic 117–132; BP diastolic 76–85; PULSE 85–96; RESP 16–20; TEMP 36.2–36.6; O2SAT 93–95
[2023-08-05] MEDS: sodium chloride 0.9% 250 ML 75 ML IV (09:27)
[2023-08-05] MEDS: diphenhydrAMINE 50 mg/mL SDV 1mL 25 MG IVP (09:28)
[2023-08-05] MEDS: acetaminophen 325 mg Tablet 650 MG PO (09:30)
[2023-08-05] MEDS: methylPREDNISolone sod succ 40 mg/mL INJ IVP (09:32)
[2023-08-05] MEDS: infliximab-abda 540 MG in sodium chloride 0.9% 250 ML 10 MG IV (09:55)
== END 2023-08-10 23:59 | disposition home or self-care (01) ==
LOC: ONCMED 08:28
PROVIDERS: PCP Family Medicine; Visit Provider Internal Medicine Rheumatology
DX: K50.90 Crohn's disease, unspecified, without complications (principal); Z79.620 Long term (current) use of immunosuppressive biologic
CPT/HCPCS: 96375; 96413; 96415; A4222; J1200; J2919; J7050; Q5104

== ENCOUNTER → 2023-08-12 14:30 | Outpatient (BNVA) | payer MEDICARE, BC, SELFPAY | PROVIDERS: PCP Family Medicine; Visit Provider Internal Medicine Rheumatology | DX: M45.0 Ankylosing spondylitis of multiple sites in spine (principal); Z79.899 Other long term (current) drug therapy; M06.08 Rheumatoid arthritis without rheumatoid factor, vertebrae; K50.90 Crohn's disease, unspecified, without complications | CPT/HCPCS: 36415; 82565; 84520; 99214 ==

== ENCOUNTER → 2023-09-09 12:33 | Outpatient (BNVA) | payer MEDICARE, BC, SELFPAY | PROVIDERS: PCP Family Medicine; Visit Provider Specialist | DX: G24.3 Spasmodic torticollis (principal) | CPT/HCPCS: 64616; J0585 ==

== ENCOUNTER → 2023-09-15 13:44 | Outpatient (BNVA) | payer MEDICARE, BC, SELFPAY | PROVIDERS: PCP Family Medicine; Visit Provider Podiatrist Foot & Ankle Surgery | DX: I73.9 Peripheral vascular disease, unspecified (principal); E11.42 Type 2 diabetes mellitus with diabetic polyneuropathy; B35.1 Tinea unguium; L84 Corns and callosities; Z79.4 Long term (current) use of insulin; Z79.84 Long term (current) use of oral hypoglycemic drugs | CPT/HCPCS: 11056; 11721 ==

== ENCOUNTER 2023-09-16 08:55 | Oncology outpatient (recurring) (ONCR) | payer MEDICARE, BC, SELFPAY ==
[2023-09-16] VITALS (9 sets, daily range): BP systolic 116–158; BP diastolic 80–106; PULSE 74–80; RESP 17–148; TEMP 36.1–36.6; O2SAT 92–97
[2023-09-16] MEDS: acetaminophen 325 mg Tablet 650 MG PO (09:55)
[2023-09-16] MEDS: sodium chloride 0.9% 250 ML 75 ML IV (09:55)
[2023-09-16] MEDS: diphenhydrAMINE 50 mg/mL SDV 1mL 25 MG IVP (09:57)
[2023-09-16] MEDS: methylPREDNISolone sod succ 40 mg/mL INJ IVP (09:57)
[2023-09-16 10:01] LABS: Basophils % 0.6 %; Eosinophils # 0.1 10^3/uL (0.0-0.8); Eosinophils % 2.1 %; Hematocrit 48.3 % (37-53); Lymphocytes % 32.1 %; Mean Corpuscular HGB Conc 30.4 g/dL (30-55); Mean Corpuscular Hemoglobin 31.5 pg (27-33); Mean Corpuscular Volume 103.4 fl (82-101); Mean Platelet Volume 10.9 fL (7.4-10.4); Monocytes # 0.4 10^3/uL (0.2-0.9); Monocytes % 6.3 %; Neutrophils # 3.65 10^3/uL (1.8-7.7); Neutrophils % 58.4 %; Nucleated Red Blood Cells % 0 %; Platelet Count 159 10^3/cmm (157-399); Red Blood Count 4.67 10^6/uL (3.85-5.65); Red Cell Distribution Width 13.3 % (12.1-15.1); White Blood Count 6.24 10^3/uL (3.29-11.43)
[2023-09-16] MEDS: INFLIXIMAB ABDA IV (10:15)
[2023-09-16] MEDS: SODIUM CHLORIDE 0.9% IV (10:15)
[2023-09-16 14:39] LABS: Alanine Aminotransferase 18 U/L (0-41); Albumin Level 4.3 g/dL (3.5-5.2); Alkaline Phosphatase 124 U/L (40-130); C Reactive Protein 5.6 mg/L (0.0-4.9); Globulin 3.3 g/dL (1.3-4.6); Glomerular Filtration Rate 59.7 mL/min (90-130); Total Bilirubin 0.6 mg/dL (0.15-1.2); Total Protein 7.6 g/dL (6.6-8.7)
[2023-09-16 15:04] LABS: Aspartate Amino Transferase 26 U/L (0-40)
== END 2023-10-10 23:59 | disposition home or self-care (01) ==
PROVIDERS: PCP Family Medicine; Visit Provider Internal Medicine Rheumatology
DX: M45.9 Ankylosing spondylitis of unspecified sites in spine
CPT/HCPCS: 80076; 82565; 85025; 86140; 96367; 96413; 96415; A4222; J1200; J2919; J7050; Q5104

== ENCOUNTER 2023-10-28 08:59 | Oncology outpatient (recurring) (ONCR) | payer MEDICARE, BC, SELFPAY ==
[2023-10-28] VITALS (8 sets, daily range): BP systolic 106–137; BP diastolic 73–80; PULSE 60–80; RESP 16–18; TEMP 36.2–36.6; O2SAT 91–96
[2023-10-28] MEDS: diphenhydrAMINE 50 mg/mL SDV 1mL 25 MG IVP (10:04)
[2023-10-28] MEDS: methylPREDNISolone sod succ 40 mg/mL INJ IVP (10:04)
[2023-10-28] MEDS: acetaminophen 325 mg Tablet 650 MG PO (10:05)
[2023-10-28] MEDS: SODIUM CHLORIDE 0.9% IV (10:26)
[2023-10-28] MEDS: INFLIXIMAB ABDA IV (10:26)
[2023-10-28] MEDS: sodium chloride 0.9% 250 ML 75 ML IV (10:26)
== END 2023-11-10 23:59 | disposition home or self-care (01) ==
PROVIDERS: PCP Family Medicine; Visit Provider Internal Medicine Rheumatology
DX: M45.9 Ankylosing spondylitis of unspecified sites in spine (principal); Z79.899 Other long term (current) drug therapy
CPT/HCPCS: 96375; 96413; 96415; A4222; J1200; J2919; J7050; Q5104

== ENCOUNTER 2023-12-09 08:08 | Oncology outpatient (recurring) (ONCR) | payer MEDICARE, BC, SELFPAY ==
[2023-12-09] VITALS (7 sets, daily range): BP systolic 113–134; BP diastolic 75–86; PULSE 73–87; RESP 16–18; TEMP 36.1–36.9; O2SAT 90–94
[2023-12-09 08:32] LABS: Basophils % 0.4 %; Eosinophils # 0.2 10^3/uL (0.0-0.8); Eosinophils % 2.2 %; Hematocrit 43.8 % (37-53); Lymphocytes # 2.4 10^3/uL (0.8-4.8); Lymphocytes % 34.3 %; Mean Corpuscular HGB Conc 32.9 g/dL (30-55); Mean Corpuscular Hemoglobin 30.3 pg (27-33); Mean Corpuscular Volume 92.2 fl (82-101); Mean Platelet Volume 11.1 fL (7.4-10.4); Monocytes # 0.5 10^3/uL (0.2-0.9); Monocytes % 7.5 %; Nucleated Red Blood Cells % 0 %; Platelet Count 207 10^3/cmm (157-399); Red Blood Count 4.75 10^6/uL (3.85-5.65); Red Cell Distribution Width 13.9 % (12.1-15.1); White Blood Count 6.91 10^3/uL (3.29-11.43)
[2023-12-09] MEDS: sodium chloride 0.9% 250 ML 75 ML IV (08:44)
[2023-12-09 08:48] LABS: Alanine Aminotransferase 24 U/L (0-41); Albumin Level 4.1 g/dL (3.5-5.2); Alkaline Phosphatase 107 U/L (40-130); Aspartate Amino Transferase 26 U/L (0-40); C Reactive Protein 4.3 mg/L (0.0-4.9); Creatinine Clr Calc Pharmacy 72.2802; Globulin 3.1 g/dL (1.3-4.6); Total Bilirubin 0.7 mg/dL (0.15-1.2); Total Protein 7.2 g/dL (6.6-8.7)
[2023-12-09] MEDS: acetaminophen 325 mg Tablet 650 MG PO (08:49)
[2023-12-09] MEDS: methylPREDNISolone sod succ 40 mg/mL INJ IVP (08:50)
[2023-12-09] MEDS: diphenhydrAMINE 50 mg/mL SDV 1mL 25 MG IVP (08:57)
[2023-12-09] MEDS: infliximab-abda 1,000 MG in sodium chloride 0.9% 250 ML 10 MG IV (09:46)
== END 2023-12-09 23:59 | disposition home or self-care (01) ==
PROVIDERS: PCP Family Medicine; Visit Provider Internal Medicine Rheumatology
DX: M45.9 Ankylosing spondylitis of unspecified sites in spine (principal); Z79.620 Long term (current) use of immunosuppressive biologic; Z53.9 Procedure and treatment not carried out, unspecified reason
CPT/HCPCS: 64616; 80076; 82565; 85025; 86140; 96375; 96413; 96415; A4222; J0585; J1200; J2919; J7050; Q5104

== ENCOUNTER → 2023-12-15 14:30 | Outpatient (BNVA) | payer MEDICARE, BC, SELFPAY | PROVIDERS: PCP Family Medicine; Visit Provider Podiatrist Foot & Ankle Surgery | DX: I73.9 Peripheral vascular disease, unspecified (principal); E11.42 Type 2 diabetes mellitus with diabetic polyneuropathy; B35.1 Tinea unguium; L84 Corns and callosities; Z79.4 Long term (current) use of insulin; Z79.84 Long term (current) use of oral hypoglycemic drugs | CPT/HCPCS: 11056; 11721 ==

== ENCOUNTER → 2023-12-16 14:00 | Outpatient (BNVA) | payer MEDICARE, BC, SELFPAY | PROVIDERS: PCP Family Medicine; Visit Provider Internal Medicine Rheumatology | DX: M06.08 Rheumatoid arthritis without rheumatoid factor, vertebrae (principal); K50.90 Crohn's disease, unspecified, without complications; Z79.899 Other long term (current) drug therapy; M45.0 Ankylosing spondylitis of multiple sites in spine | CPT/HCPCS: 99214 ==

== ENCOUNTER 2024-02-07 08:00 | Oncology outpatient (recurring) (ONCR) | payer BC, MEDICARE, SELFPAY ==
[2024-02-07] MEDS: methylPREDNISolone sod succ 40 mg/mL INJ IVP (08:33)
[2024-02-07] MEDS: sodium chloride 0.9% 250 ML 75 ML IV (08:33)
[2024-02-07] MEDS: acetaminophen 325 mg Tablet 650 MG PO (08:33)
[2024-02-07] MEDS: diphenhydrAMINE 50 mg/mL SDV 1mL 25 MG IVP (08:38)
[2024-02-07] MEDS: INFLIXIMAB ABDA IV (09:18)
[2024-02-07] MEDS: SODIUM CHLORIDE 0.9% IV (09:18)
[2024-02-07 09:20] VITALS: BP 111/70; PULSE 77; RESP 16; TEMP 36.3; O2SAT 92
[2024-02-07 09:40] VITALS: BP 105/76; PULSE 71; RESP 16; TEMP 36.1; O2SAT 92
[2024-02-07 09:55] VITALS: BP 109/71; PULSE 72; RESP 16; TEMP 36.2; O2SAT 90
[2024-02-07 10:10] VITALS: BP 126/76; PULSE 70; RESP 16; TEMP 36.2; O2SAT 90
[2024-02-07 10:25] VITALS: BP 112/71; PULSE 69; RESP 16; TEMP 36.2; O2SAT 92
[2024-02-07 11:50] VITALS: BP 123/81; PULSE 73; RESP 16; TEMP 35.8; O2SAT 95
== END 2024-02-10 23:59 | disposition home or self-care (01) ==
PROVIDERS: PCP Family Medicine; Visit Provider Internal Medicine Rheumatology
DX: M45.9 Ankylosing spondylitis of unspecified sites in spine (principal); Z79.899 Other long term (current) drug therapy
CPT/HCPCS: 96375; 96413; 96415; A4222; J1200; J2919; J7050; Q5104

== ENCOUNTER → 2024-03-17 14:56 | Outpatient (BNVA) | payer MEDICARE, BC, SELFPAY | PROVIDERS: PCP Family Medicine; Visit Provider Specialist | DX: G24.3 Spasmodic torticollis (principal) | CPT/HCPCS: 64616; J0585 ==

== ENCOUNTER 2024-03-20 07:58 | Oncology outpatient (recurring) (ONCR) | payer MEDICARE, BC, SELFPAY ==
[2024-03-20] VITALS (7 sets, daily range): BP systolic 101–133; BP diastolic 63–86; PULSE 66–72; RESP 16–17; TEMP 36.2–36.4; O2SAT 90–94
[2024-03-20 08:44] LABS: Basophils % 0.5 %; Eosinophils # 0.1 10^3/uL (0.0-0.8); Hematocrit 42.3 % (37-53); Lymphocytes # 2.1 10^3/uL (0.8-4.8); Lymphocytes % 35.5 %; Mean Corpuscular HGB Conc 32.9 g/dL (30-55); Mean Corpuscular Hemoglobin 30.6 pg (27-33); Mean Corpuscular Volume 93.2 fl (82-101); Mean Platelet Volume 11.3 fL (7.4-10.4); Monocytes # 0.5 10^3/uL (0.2-0.9); Monocytes % 7.6 %; Neutrophils # 3.25 10^3/uL (1.8-7.7); Neutrophils % 53.9 %; Nucleated Red Blood Cells % 0 %; Platelet Count 199 10^3/cmm (157-399); Red Blood Count 4.54 10^6/uL (3.85-5.65); Red Cell Distribution Width 13.7 % (12.1-15.1); White Blood Count 6.03 10^3/uL (3.29-11.43)
[2024-03-20 09:01] LABS: Alanine Aminotransferase 24 U/L (0-41); Albumin Level 3.9 g/dL (3.5-5.2); Alkaline Phosphatase 120 U/L (40-130); Aspartate Amino Transferase 32 U/L (0-40); C Reactive Protein 7.4 mg/L (0.0-4.9); Creatinine Clr Calc Pharmacy 74.3279; Globulin 3.3 g/dL (1.3-4.6); Total Bilirubin 0.4 mg/dL (0.15-1.2); Total Protein 7.2 g/dL (6.6-8.7)
[2024-03-20] MEDS: acetaminophen 325 mg Tablet 650 MG PO (09:01)
[2024-03-20] MEDS: sodium chloride 0.9% 250 ML 75 ML IV (09:01)
[2024-03-20] MEDS: diphenhydrAMINE 50 mg/mL SDV 1mL 25 MG IVP (09:01)
[2024-03-20] MEDS: methylPREDNISolone sod succ 40 mg/mL INJ IVP (09:07)
[2024-03-20] MEDS: SODIUM CHLORIDE 0.9% IV (09:45)
[2024-03-20] MEDS: INFLIXIMAB ABDA IV (09:45)
== END 2024-04-11 23:59 | disposition home or self-care (01) ==
PROVIDERS: PCP Family Medicine; Visit Provider Internal Medicine Rheumatology
DX: K50.90 Crohn's disease, unspecified, without complications (principal); Z79.899 Other long term (current) drug therapy
CPT/HCPCS: 80076; 82565; 85025; 86140; 96375; 96413; 96415; A4222; J1200; J2919; J7050; Q5104

== ENCOUNTER → 2024-04-11 09:45 | Outpatient (BNVA) | payer MEDICARE, BC, SELFPAY | PROVIDERS: PCP Family Medicine; Visit Provider Podiatrist Foot & Ankle Surgery | DX: I73.9 Peripheral vascular disease, unspecified (principal); E11.42 Type 2 diabetes mellitus with diabetic polyneuropathy; B35.1 Tinea unguium; L84 Corns and callosities; Z79.84 Long term (current) use of oral hypoglycemic drugs; Z79.4 Long term (current) use of insulin | CPT/HCPCS: 11056; 11721 ==

== ENCOUNTER 2024-05-01 08:04 | Oncology outpatient (recurring) (ONCR) | payer MEDICARE, BC, SELFPAY ==
[2024-05-01 08:53] VITALS: BP 117/75; PULSE 78; RESP 16; TEMP 36.7; O2SAT 93
[2024-05-01 09:10] LABS: Basophils % 0.5 %; Eosinophils # 0.1 10^3/uL (0.0-0.8); Eosinophils % 1.8 %; Lymphocytes # 1.6 10^3/uL (0.8-4.8); Lymphocytes % 26.3 %; Mean Corpuscular HGB Conc 33.2 g/dL (30-55); Mean Corpuscular Hemoglobin 30.4 pg (27-33); Mean Corpuscular Volume 91.5 fl (82-101); Mean Platelet Volume 11.6 fL (7.4-10.4); Monocytes # 0.5 10^3/uL (0.2-0.9); Monocytes % 7.5 %; Neutrophils # 3.91 10^3/uL (1.8-7.7); Neutrophils % 63.3 %; Nucleated Red Blood Cells % 0 %; Platelet Count 180 10^3/cmm (157-399); Red Blood Count 4.48 10^6/uL (3.85-5.65); Red Cell Distribution Width 13.4 % (12.1-15.1); White Blood Count 6.17 10^3/uL (3.29-11.43)
[2024-05-01] MEDS: acetaminophen 325 mg Tablet 650 MG PO (09:16)
[2024-05-01] MEDS: sodium chloride 0.9% 250 ML 75 ML IV (09:17)
[2024-05-01] MEDS: methylPREDNISolone sod succ 40 mg/mL INJ IVP (09:20)
[2024-05-01] MEDS: diphenhydrAMINE 50 mg/mL SDV 1mL 25 MG IVP (09:24)
[2024-05-01 09:35] LABS: Alanine Aminotransferase 19 U/L (0-41); Albumin Level 3.9 g/dL (3.5-5.2); Alkaline Phosphatase 134 U/L (40-130); Aspartate Amino Transferase 20 U/L (0-40); C Reactive Protein 11.8 mg/L (0.0-4.9); Creatinine Clr Calc Pharmacy 74.9731; Total Bilirubin 0.5 mg/dL (0.15-1.2); Total Protein 6.9 g/dL (6.6-8.7)
[2024-05-01] MEDS: SODIUM CHLORIDE 0.9% IV (10:07)
[2024-05-01] MEDS: INFLIXIMAB ABDA IV (10:07)
[2024-05-01 11:24] VITALS: BP 152/91; PULSE 72; RESP 17; TEMP 35.8; O2SAT 94
== END 2024-05-01 23:59 | disposition home or self-care (01) ==
PROVIDERS: PCP Family Medicine; Visit Provider Internal Medicine Rheumatology
DX: M45.9 Ankylosing spondylitis of unspecified sites in spine; K50.90 Crohn's disease, unspecified, without complications; Z79.620 Long term (current) use of immunosuppressive biologic
CPT/HCPCS: 80076; 82565; 85025; 86140; 96376; 96413; A4222; J1200; J2919; J7050; Q5104

== ENCOUNTER → 2024-06-09 14:39 | Outpatient (BNVA) | payer MEDICARE, BC, SELFPAY | PROVIDERS: PCP Family Medicine; Visit Provider Specialist | DX: G24.3 Spasmodic torticollis (principal) | CPT/HCPCS: 64616; J0585 ==

== ENCOUNTER → 2024-06-15 13:37 | Outpatient (BNVA) | payer MEDICARE, BC, SELFPAY | PROVIDERS: PCP Family Medicine; Visit Provider Internal Medicine Rheumatology | DX: M06.08 Rheumatoid arthritis without rheumatoid factor, vertebrae (principal); K50.90 Crohn's disease, unspecified, without complications; Z79.899 Other long term (current) drug therapy; M45.0 Ankylosing spondylitis of multiple sites in spine | CPT/HCPCS: 99214 ==

== ENCOUNTER 2024-06-27 08:59 | Oncology outpatient (recurring) (ONCR) | payer MEDICARE, BC, SELFPAY ==
[2024-06-27 09:15] VITALS: BP 134/81; PULSE 79; RESP 17; TEMP 36.6; O2SAT 95
[2024-06-27] MEDS: sodium chloride 0.9% 250 ML 75 ML IV (09:29)
[2024-06-27] MEDS: acetaminophen 325 mg Tablet 650 MG PO (09:29)
[2024-06-27] MEDS: diphenhydrAMINE 50 mg/mL SDV 1mL 25 MG IVP (09:30)
[2024-06-27] MEDS: methylPREDNISolone sod succ 40 mg/mL INJ IVP (09:31)
[2024-06-27 10:10] LABS: Basophils % 0.5 %; Eosinophils # 0.2 10^3/uL (0.0-0.8); Eosinophils % 3.5 %; Hematocrit 43.6 % (37-53); Lymphocytes # 1.8 10^3/uL (0.8-4.8); Lymphocytes % 29.6 %; Mean Corpuscular Hemoglobin 29.8 pg (27-33); Mean Corpuscular Volume 90.3 fl (82-101); Mean Platelet Volume 11.1 fL (7.4-10.4); Monocytes # 0.4 10^3/uL (0.2-0.9); Monocytes % 6.3 %; Neutrophils # 3.58 10^3/uL (1.8-7.7); Neutrophils % 59.4 %; Nucleated Red Blood Cells % 0 %; Platelet Count 181 10^3/cmm (157-399); Red Blood Count 4.83 10^6/uL (3.85-5.65); Red Cell Distribution Width 13.5 % (12.1-15.1); White Blood Count 6.02 10^3/uL (3.29-11.43)
[2024-06-27] MEDS: INFLIXIMAB ABDA IV (10:18)
[2024-06-27] MEDS: SODIUM CHLORIDE 0.9% IV (10:18)
[2024-06-27 10:27] LABS: Alanine Aminotransferase 25 U/L (0-41); Alkaline Phosphatase 127 U/L (40-130); Aspartate Amino Transferase 25 U/L (0-40); C Reactive Protein 8.4 mg/L (0.0-4.9); Creatinine Clr Calc Pharmacy 85.7156; Globulin 2.9 g/dL (1.3-4.6); Glomerular Filtration Rate 54.8 mL/min (90-130); Total Bilirubin 0.5 mg/dL (0.15-1.2); Total Protein 6.9 g/dL (6.6-8.7)
[2024-06-27 11:48] VITALS: BP 149/81; PULSE 72; RESP 18; TEMP 36.2; O2SAT 92
== END 2024-06-27 23:59 | disposition home or self-care (01) ==
PROVIDERS: PCP Family Medicine; Visit Provider Internal Medicine Rheumatology
DX: M45.9 Ankylosing spondylitis of unspecified sites in spine (principal); Z79.899 Other long term (current) drug therapy
CPT/HCPCS: 80076; 82565; 85025; 86140; 96375; 96413; A4222; J1200; J2919; J7050; J9999; Q5104

== ENCOUNTER → 2024-07-11 10:03 | Outpatient (BNVA) | payer MEDICARE, BC, SELFPAY | PROVIDERS: PCP Family Medicine; Visit Provider Podiatrist Foot & Ankle Surgery | DX: E11.8 Type 2 diabetes mellitus with unspecified complications (principal); B35.1 Tinea unguium; L84 Corns and callosities; I73.9 Peripheral vascular disease, unspecified; E11.42 Type 2 diabetes mellitus with diabetic polyneuropathy; M21.41 Flat foot [pes planus] (acquired), right foot; M21.42 Flat foot [pes planus] (acquired), left foot; Z79.84 Long term (current) use of oral hypoglycemic drugs; Z79.4 Long term (current) use of insulin | CPT/HCPCS: 11056; 11721; 99213 ==

== ENCOUNTER 2024-09-06 08:55 | Oncology outpatient (recurring) (ONCR) | payer MEDICARE, BC, SELFPAY ==
[2024-09-06 09:35] VITALS: BP 121/80; PULSE 85; RESP 16; TEMP 36.8; O2SAT 96
[2024-09-06] MEDS: acetaminophen 325 mg Tablet 650 MG PO (09:49)
[2024-09-06] MEDS: sodium chloride 0.9% 250 ML 75 ML IV (09:49)
[2024-09-06] MEDS: methylPREDNISolone sod succ 40 mg/mL INJ IVP (09:50)
[2024-09-06] MEDS: diphenhydrAMINE 50 mg/mL SDV 1mL 25 MG IVP (09:53)
[2024-09-06] MEDS: SODIUM CHLORIDE 0.9% IV (10:16)
[2024-09-06] MEDS: INFLIXIMAB ABDA IV (10:16)
[2024-09-06 11:47] VITALS: BP 143/99; PULSE 83; RESP 16; TEMP 36.6; O2SAT 96
== END 2024-09-09 23:59 | disposition home or self-care (01) ==
PROVIDERS: PCP Family Medicine; Visit Provider Internal Medicine Rheumatology
DX: M45.9 Ankylosing spondylitis of unspecified sites in spine (principal); K50.90 Crohn's disease, unspecified, without complications; Z79.899 Other long term (current) drug therapy
CPT/HCPCS: 96375; 96413; A4222; J1200; J2919; J7050; J9999; Q5104

== ENCOUNTER → 2024-09-08 14:24 | Outpatient (BNVA) | payer MEDICARE, BC, SELFPAY | PROVIDERS: PCP Family Medicine; Visit Provider Specialist | DX: G24.3 Spasmodic torticollis (principal) | CPT/HCPCS: 64616; J0585; J9999 ==

== ENCOUNTER → 2024-10-10 10:06 | Outpatient (BNVA) | payer MEDICARE, BC, SELFPAY | PROVIDERS: PCP Family Medicine; Visit Provider Podiatrist Foot & Ankle Surgery | DX: E11.8 Type 2 diabetes mellitus with unspecified complications (principal); B35.1 Tinea unguium; L84 Corns and callosities; I73.9 Peripheral vascular disease, unspecified; E11.42 Type 2 diabetes mellitus with diabetic polyneuropathy; M21.41 Flat foot [pes planus] (acquired), right foot; M21.42 Flat foot [pes planus] (acquired), left foot; Z79.4 Long term (current) use of insulin; Z79.84 Long term (current) use of oral hypoglycemic drugs | CPT/HCPCS: 11056; 11721 ==

== ENCOUNTER → 2024-12-14 12:45 | Outpatient (BNVA) | payer MEDICARE, BC, SELFPAY | PROVIDERS: PCP Family Medicine; Visit Provider Specialist | DX: G24.3 Spasmodic torticollis (principal) | CPT/HCPCS: 64616; J0585; J9999 ==

== ENCOUNTER → 2024-12-21 13:07 | Outpatient (BNVA) | payer MEDICARE, BC, SELFPAY | PROVIDERS: PCP Family Medicine; Visit Provider Internal Medicine Rheumatology | DX: M46.1 Sacroiliitis, not elsewhere classified (principal); K50.90 Crohn's disease, unspecified, without complications; Z79.899 Other long term (current) drug therapy; M45.0 Ankylosing spondylitis of multiple sites in spine | CPT/HCPCS: 99214 ==

== ENCOUNTER 2025-01-04 12:57 | Oncology outpatient (recurring) (ONCR) | payer MEDICARE, BC, SELFPAY ==
[2025-01-04 13:35] LABS: Hematocrit 44.6 % (37-53); Hemoglobin 14.80 g/dL (11.27-16.99); Mean Corpuscular HGB Conc 33.2 g/dL (30-55); Mean Corpuscular Hemoglobin 29.4 pg (27-33); Mean Corpuscular Volume 88.7 fl (82-101); Nucleated Red Blood Cells % 0 %; Platelet Count 168 10^3/cmm (157-399); Red Blood Count 5.03 10^6/uL (3.85-5.65); White Blood Count 5.09 10^3/uL (3.29-11.43)
[2025-01-04] MEDS: methylPREDNISolone sod succ 40 mg/mL INJ IVP (13:45)
[2025-01-04] MEDS: diphenhydrAMINE 50 mg/mL SDV 1mL 25 MG IVP (13:50)
[2025-01-04 13:55] LABS: Alanine Aminotransferase 22 U/L (0-41); Albumin Level 4.0 g/dL (3.5-5.2); Alkaline Phosphatase 116 U/L (40-130); Aspartate Amino Transferase 25 U/L (0-40); Creatinine Clr Calc Pharmacy 82.6141; Globulin 3.6 g/dL (1.3-4.6); Total Protein 7.6 g/dL (6.6-8.7)
[2025-01-04] MEDS: SODIUM CHLORIDE 0.9% IV (14:22)
[2025-01-04] MEDS: INFLIXIMAB ABDA IV (14:22)
[2025-01-04 15:38] VITALS: BP 154/100; PULSE 78; RESP 18; TEMP 36.4; O2SAT 94
== END 2025-01-09 23:59 | disposition home or self-care (01) ==
PROVIDERS: PCP Family Medicine; Visit Provider Internal Medicine Rheumatology
DX: M45.9 Ankylosing spondylitis of unspecified sites in spine (principal); Z79.899 Other long term (current) drug therapy
CPT/HCPCS: 80076; 82565; 85025; 86140; 96375; 96413; A4222; J1200; J2919; J7050; J9999; Q5104

== ENCOUNTER → 2025-01-15 12:48 | Outpatient (BNVA) | payer MEDICARE, BC, SELFPAY | PROVIDERS: PCP Family Medicine; Visit Provider Podiatrist Foot & Ankle Surgery | DX: E11.42 Type 2 diabetes mellitus with diabetic polyneuropathy (principal); B35.1 Tinea unguium; L84 Corns and callosities; I73.9 Peripheral vascular disease, unspecified; E11.8 Type 2 diabetes mellitus with unspecified complications; M21.41 Flat foot [pes planus] (acquired), right foot; M21.42 Flat foot [pes planus] (acquired), left foot; Z79.4 Long term (current) use of insulin; Z79.84 Long term (current) use of oral hypoglycemic drugs | CPT/HCPCS: 11056; 11721 ==

== ENCOUNTER 2025-02-15 12:54 | Oncology outpatient (recurring) (ONCR) | payer MEDICARE, BC, SELFPAY ==
[2025-02-15 13:19] VITALS: BP 140/91; PULSE 87; RESP 17; TEMP 36.7; O2SAT 94
[2025-02-15] MEDS: diphenhydrAMINE 50 mg/mL SDV 1mL 25 MG IVP (13:29)
[2025-02-15] MEDS: methylPREDNISolone sod succ 40 mg/mL INJ IVP (13:32)
[2025-02-15] MEDS: SODIUM CHLORIDE 0.9% IV (13:57)
[2025-02-15] MEDS: INFLIXIMAB ABDA IV (13:57)
[2025-02-15 15:11] VITALS: BP 155/92; PULSE 74; RESP 18; TEMP 36.6; O2SAT 98
== END 2025-03-11 23:59 | disposition home or self-care (01) ==
PROVIDERS: PCP Family Medicine; Visit Provider Internal Medicine Rheumatology
DX: M45.9 Ankylosing spondylitis of unspecified sites in spine (principal); Z79.899 Other long term (current) drug therapy
CPT/HCPCS: 96375; 96413; A4222; J1200; J2919; J7050; J9999; Q5104

== ENCOUNTER → 2025-03-22 08:58 | Outpatient (BNVA) | payer MEDICARE, BC, SELFPAY | PROVIDERS: PCP Family Medicine; Visit Provider Specialist | DX: G24.3 Spasmodic torticollis (principal) | CPT/HCPCS: 64616; J0585; J9999 ==

== ENCOUNTER 2025-03-28 12:58 | Oncology outpatient (recurring) (ONCR) | payer MEDICARE, BC, SELFPAY ==
[2025-03-28 13:44] LABS: Hematocrit 46.1 % (37-53); Hemoglobin 15.50 g/dL (11.27-16.99); Mean Corpuscular HGB Conc 33.6 g/dL (30-55); Mean Corpuscular Hemoglobin 29.9 pg (27-33); Mean Corpuscular Volume 89.0 fl (82-101); Nucleated Red Blood Cells % 0 %; Platelet Count 182 10^3/cmm (157-399); Red Blood Count 5.18 10^6/uL (3.85-5.65); White Blood Count 7.08 10^3/uL (3.29-11.43)
[2025-03-28] MEDS: diphenhydrAMINE 50 mg/mL SDV 1mL 25 MG IVP (13:50)
[2025-03-28] MEDS: methylPREDNISolone sod succ 40 mg/mL INJ IVP (13:55)
[2025-03-28 14:07] LABS: Alanine Aminotransferase 25 U/L (0-41); Albumin Level 4.0 g/dL (3.5-5.2); Alkaline Phosphatase 102 U/L (40-130); Globulin 3.1 g/dL (1.3-4.6); Total Protein 7.1 g/dL (6.6-8.7)
[2025-03-28 14:10] LABS: Aspartate Amino Transferase 32 U/L (0-40)
[2025-03-28] MEDS: INFLIXIMAB ABDA IV (14:37)
[2025-03-28] MEDS: SODIUM CHLORIDE 0.9% IV (14:37)
[2025-03-28 15:57] VITALS: BP 151/90; PULSE 84; TEMP 36.7; O2SAT 95
== END 2025-04-11 23:59 | disposition home or self-care (01) ==
PROVIDERS: PCP Family Medicine; Visit Provider Internal Medicine Rheumatology
DX: M45.9 Ankylosing spondylitis of unspecified sites in spine (principal); Z79.899 Other long term (current) drug therapy
CPT/HCPCS: 80076; 82565; 85025; 86140; 96375; 96413; J1200; J2919; J7050; J9999; Q5104